=== PATIENT | male | born 1945 | race Caucasian/White ===

== ENCOUNTER → 2018-08-20 10:39 | Outpatient (CLI) | payer MEDICARE, SELFPAY ==
--- NOTE | 2018-08-20 | DI.MRI.S_ITS ---
PROCEDURE: MR LUMBAR SPINE WO CON INDICATIONS: Low back pain TECHNIQUE: Noncontrast sagittal T1 spin echo and T2 fast echo, sagittal STIR, axial T1 and T2 fast spin echo through the lumbar spine. In cases with scoliosis, additional coronal T2 fast spin echo may be performed. COMPARISON: [facility] [place], CR, XR LUMBAR SPINE WITH OLBIQUES PLUS FLEXION EXTENSION, 08/09/2018, 9:51 FINDINGS: Image quality: Excellent. Alignment and Curvature: There is normal bony alignment. Bone Marrow: Marrow is of normal overall signal. No acute vertebral body compression fractures. Spinal Cord: Conus medullaris terminates at L1 level. Visualized cord demonstrates normal signal and size. Paraspinous Soft Tissues: No paravertebral masses. L1-L2: Normal appearance. L2-L3: Normal appearance. L3-L4: Loss of disc signal. Mild, diffuse disc bulge. Mild bilateral facet hypertrophy. Mild ligamentum flavum per superior moderate narrowing of the central canal. Moderate bilateral neural foraminal narrowing. No neural impingement. L4-L5: Loss of disc signal. Mild, diffuse disc bulge. Mild bilateral facet hypertrophy. Mild ligamentum flavum hypertrophy. Moderate narrowing of the central canal. Moderate bilateral neural foraminal narrowing. No neural impingement. Focal high intensity zone is noted in the posterior annulus compatible with a fissure. L5-S1: Loss of disc signal. Minimal, diffuse disc bulge. Mild bilateral facet hypertrophy. No central stenosis. No neural foraminal narrowing. No neural impingement. IMPRESSION: 1. Multilevel degenerative disc disease. 2. Multilevel facet arthropathy. 3. Moderate L3-L4 and L4-L5 central canal narrowing. 4. Moderate bilateral L3-L4 and L4-L5 neural foraminal narrowing. 5. No neural impingement. 6. L4-L5 disc annulus fissure. Dictated by: Susanna Kim MD, PhD on 08/22/2018 at 12:35 Approved by: Susanna Kim MD, PhD on 08/22/2018 at 12:47
== END ==
PROVIDERS: PCP Internal Medicine; Visit Provider Physical Medicine & Rehabilitation
DX: M54.5 Low back pain (principal); M51.36 Other intervertebral disc degeneration, lumbar region; M51.37 Other intervertebral disc degeneration, lumbosacral region; M48.061 Spinal stenosis, lumbar region without neurogenic claudication; M48.07 Spinal stenosis, lumbosacral region; M47.816 Spondylosis without myelopathy or radiculopathy, lumbar region; M47.817 Spondylosis without myelopathy or radiculopathy, lumbosacral region
CPT/HCPCS: 72148

== ENCOUNTER 2018-10-04 08:55 | Day surgery (SDC) | payer MEDICARE, SELFPAY ==
[2018-10-04 10:31] VITALS: BMI 27.9
[2018-10-04 10:35] VITALS: BP 144/74; PULSE 63; RESP 16; TEMP 36.6; O2SAT 98
[2018-10-04] MEDS: CATARACT EYE COMPOUND (10 DROPS/SYRINGE) 3 DROPS EYE-OP (11:03)
[2018-10-04] MEDS: PROPARACAINE 0.5% OPHTH SOL 2 DROPS EYE-OP (11:04)
--- NOTE | 2018-10-04 11:28 | PM.PREOP ---
Pre-operative Note Interval Note History & Physical reviewed/Exam performed by Physician: No Changes to H&P: No
--- NOTE | 2018-10-04 11:28 | PM.OP.1 ---
Operative Date/Time/Diagnoses Pre-op diagnosis: Nuclear cataract right eye Procedure & Clinicians Procedure: Cataract Surgery Same procedure as scheduled: Yes Surgeon: Gabe Pickett Anesthesia Type: MAC +/- and Sedation Operative Notes Procedure in detail: Patient brought to the operating suite. Tetracaine drops placed in the right eye. Patient was prepped and draped in sterile manner. Wire lid speculum was placed in the eye. Betadine drops were placed on the eye. This was irrigated. Lidocaine jelly was placed on the eye. A paracentesis port was created with a side-port blade. 0.1 mL 1% preservative free lidocaine was injected into the anterior chamber. The anterior chamber was deepened with viscoelastic. 2.6 mm keratome was used to create a temporal clear corneal incision. Cystotome and Utrata forceps were used to create continuous tear capsulorrhexis. Balanced salt solution was used to hydro dissect the nucleus. The phacoemulsification handpiece was inserted and the nucleus was removed using the stop and chop technique. The irrigation aspiration handpiece was inserted and the remaining cortex was removed. Anterior chamber was deepened with viscoelastic. An Barton ZCB00 intraocular lens with a power of 21.0 was injected into the capsular bag. Irrigation aspiration handpiece was inserted and the remaining viscoelastic was removed. Incision was hydrated with balanced salt solution and found to be leak free with pressure with Weck-Kathy sponges. 0.1 mL Vigamox injected anterior chamber. 0.3 mL Kenalog 10 mg was injected subconjunctivally. Lid speculum was removed. The patient left the operating room in excellent condition. Complications: none Condition: stable Disposition: same day surgery
[2018-10-04] MEDS: MOXIFLOXACIN OPHTH DROPS 3 ML BOTTLE 2 DROPS INJ (11:47)
[2018-10-04] MEDS: PHENYLEPHRINE/LIDOCAINE VIAL (OR) 0.2 ML EYE-OP (11:47)
[2018-10-04] MEDS: CHONDROIDTIN/SOD HYALURONATE 1.05 ML SYRINGE INTRAOCULA (11:48)
[2018-10-04] MEDS: TRIAMCINOLONE 50 MG/5 ML VIAL INJ (11:48)
[2018-10-04] MEDS: LIDOCAINE JELLY 2% 5 ML 1 APPLIC TOP (11:48)
[2018-10-04] MEDS: TETRACAINE 0.5% OPHTH DROPS 4 ML 2 DROPS EYE-OP (11:48)
[2018-10-04] MEDS: BALANCED SALT IRRIG SOLN NO.2 500 ML, EPINEPHrine 1 MG IRR (11:49)
[2018-10-04 12:30] VITALS: BP 129/77; PULSE 61; RESP 16; TEMP 37.1; O2SAT 99
== END 2018-10-04 12:30 | disposition home or self-care (01) ==
LOC: OR 08:57
PROVIDERS: PCP Internal Medicine; Visit Provider Ophthalmology
PROC: (CPT 66984; principal; 2018-10-04 11:15)
DX: H25.11 Age-related nuclear cataract, right eye (principal); E11.9 Type 2 diabetes mellitus without complications; I10 Essential (primary) hypertension; Z79.84 Long term (current) use of oral hypoglycemic drugs
CPT/HCPCS: 66984; J0171; J2250; J3301

== ENCOUNTER 2018-10-11 08:55 | Day surgery (SDC) | payer MEDICARE, SELFPAY ==
[2018-10-11] MEDS: PROPARACAINE 0.5% OPHTH SOL 2 DROPS EYE-OP (09:26)
[2018-10-11 09:28] VITALS: BP 136/73; PULSE 70; RESP 15; TEMP 36.4; O2SAT 98; BMI 27.8
[2018-10-11] MEDS: CATARACT EYE COMPOUND (10 DROPS/SYRINGE) 3 DROPS EYE-OP (09:31)
--- NOTE | 2018-10-11 10:37 | PM.PREOP ---
Pre-operative Note Interval Note History & Physical reviewed/Exam performed by Physician: No Changes to H&P: No
--- NOTE | 2018-10-11 10:37 | PM.OP.1 ---
Operative Date/Time/Diagnoses Pre-op diagnosis: Nuclear Cataract Left eye Post-op diagnosis: same Procedure & Clinicians Surgeon: Gabe Pickett Anesthesia Type: MAC +/- and Sedation Operative Notes Procedure in detail: Patient brought to the operating suite. Tetracaine drops placed in the left eye. Patient was prepped and draped in sterile manner. Wire lid speculum was placed in the eye. Betadine drops were placed on the eye. This was irrigated. Lidocaine jelly was placed on the eye. A paracentesis port was created with a side-port blade. 0.1 mL 1% preservative free lidocaine was injected into the anterior chamber. The anterior chamber was deepened with viscoelastic. 2.6 mm keratome was used to create a temporal clear corneal incision. Cystotome and Utrata forceps were used to create continuous tear capsulorrhexis. Balanced salt solution was used to hydro dissect the nucleus. The phacoemulsification handpiece was inserted and the nucleus was removed using the stop and chop technique. The irrigation aspiration handpiece was inserted and the remaining cortex was removed. Anterior chamber was deepened with viscoelastic. An Barton ZCB00 intraocular lens with a power of 21.0 was injected into the capsular bag. Irrigation aspiration handpiece was inserted and the remaining viscoelastic was removed. Incision was hydrated with balanced salt solution and found to be leak free with pressure with Weck-Kathy sponges. 0.1 mL Vigamox injected anterior chamber. 0.3 mL Kenalog 10 mg was injected subconjunctivally. Lid speculum was removed. The patient left the operating room in excellent condition. Complications: none Condition: stable Disposition: same day surgery
--- NOTE | 2018-10-11 10:47 | SUR.OPER ---
Supine on eye stretcher, head on extension cradle secured with tape. Arms tucked at sides with blanket. Pillow under knees.
[2018-10-11] MEDS: MOXIFLOXACIN OPHTH DROPS 3 ML BOTTLE 2 DROPS INJ (10:50)
[2018-10-11] MEDS: PHENYLEPHRINE/LIDOCAINE VIAL (OR) 0.2 ML EYE-OP (10:50)
[2018-10-11] MEDS: TRIAMCINOLONE 50 MG/5 ML VIAL INJ (10:51)
[2018-10-11] MEDS: LIDOCAINE JELLY 2% 5 ML 1 APPLIC TOP (10:52)
[2018-10-11] MEDS: CHONDROIDTIN/SOD HYALURONATE 1.05 ML SYRINGE INTRAOCULA (10:52)
[2018-10-11] MEDS: TETRACAINE 0.5% OPHTH DROPS 15 ML 2 DROPS EYE-LEFT (10:52)
[2018-10-11] MEDS: BALANCED SALT IRRIG SOLN NO.2 500 ML, EPINEPHrine 1 MG IRR (10:53)
[2018-10-11 11:05] VITALS: BP 114/73; PULSE 64; RESP 14; TEMP 36.2; O2SAT 97
--- NOTE | 2018-10-11 11:14 | SUR.PHASEII ---
1102 late entry To OPD in WC, awake, oriented. Juice given.
--- NOTE | 2018-10-11 11:15 | SUR.PHASEII ---
1111 Stable, A&O, no questions from pt/spouse.
== END 2018-10-11 11:11 | disposition home or self-care (01) ==
LOC: OR 08:57
PROVIDERS: PCP Internal Medicine; Visit Provider Ophthalmology
PROC: (CPT 66984; principal; 2018-10-11 10:45)
DX: H25.12 Age-related nuclear cataract, left eye (principal); E11.9 Type 2 diabetes mellitus without complications; I10 Essential (primary) hypertension
CPT/HCPCS: 66984; J0171; J2250; J3010; J3301

== ENCOUNTER → 2019-11-28 09:05 | Outpatient (CLI) | payer MEDICARE, SELFPAY ==
--- NOTE | 2019-11-28 | DI.US.S_ITS ---
PROCEDURE: US CAROTID DOPPLER BI INDICATIONS: PARKINSON'S DISEASE TECHNIQUE: Color and pulse Doppler interrogation was performed of both carotid systems, with image documentation and velocity measurements. COMPARISON: None. FINDINGS: Stenosis calculations are based on SRU (Society of Radiologists in Ultrasound) criteria. The flow velocities and the arterial waveforms are normal within both carotid arterial systems. Atherosclerotic plaque is seen on both sides. The estimated degree of internal carotid artery stenosis is less than 50%. Antegrade flow is confirmed within both vertebral arteries. IMPRESSION: No hemodynamically significant stenosis is seen. Atherosclerotic plaque is noted bilaterally. Dictated by: Shorty Price M.D. on 11/28/2019 at 9:49 Approved by: Shorty Price M.D. on 11/28/2019 at 9:50
== END ==
PROVIDERS: PCP Internal Medicine; Referring Provider Psychiatry & Neurology Neurology; Visit Provider Psychiatry & Neurology Neurology
DX: G20 Parkinson's disease (principal); I65.23 Occlusion and stenosis of bilateral carotid arteries
CPT/HCPCS: 93880

== ENCOUNTER → 2019-11-30 07:43 | Outpatient (CLI) | payer MEDICARE, SELFPAY ==
--- NOTE | 2019-11-30 | DI.MRI.S_ITS ---
PROCEDURE: MR HEAD/BRAIN WO/W CON INDICATIONS: Parkinson's disease TECHNIQUE: Noncontrast axial T1 spin echo, axial T2 fast spin echo, sagittal and axial FLAIR, coronal T2 fast spin echo, axial gradient echo, axial diffusion and ADC through the brain. After the administration of contrast, axial and coronal 3D VIBE or T1 spin echo with fat saturation through the brain. COMPARISON: None. FINDINGS: Image quality: Excellent. CSF Spaces: Basal cisterns are patent. No extra-axial fluid collections. Ventricles are normal in size and shape. Brain: No midline shift. No intracranial bleeds or masses. There is mild, diffuse cerebral volume loss. There are mild periventricular and subcortical white matter chronic microvascular ischemic changes. No abnormal intracranial enhancement. The brainstem appears normal. Diffusion-weighted images demonstrate no acute ischemic insults. No chronic ischemic insults. Normal intravascular flow voids are present. Skull and face: Calvarial marrow is normal in signal. Orbits appear normal. Sinuses: Sinuses and mastoids appear clear. IMPRESSION: 1. No acute intracranial disease process. 2. No areas of acute or chronic infarction.. 3. No abnormal intracranial mass or mass effect. 4. No suspicious postcontrast enhancement. 5. Mild, diffuse cerebral volume loss. 6. Mild periventricular and subcortical white matter chronic microvascular ischemic change. Dictated by: Susanna Kim MD, PhD on 11/30/2019 at 10:26 Approved by: Susanna Kim MD, PhD on 11/30/2019 at 10:29
== END ==
PROVIDERS: PCP Internal Medicine; Referring Provider Internal Medicine; Visit Provider Psychiatry & Neurology Neurology
DX: G20 Parkinson's disease (principal)
CPT/HCPCS: 70553; A9579

== ENCOUNTER → 2019-12-15 13:30 | Outpatient (CLI) | payer MEDICARE, SELFPAY ==
[2019-12-17 13:15] LABS: COVID19 Sendout Not Detected
== END ==
PROVIDERS: PCP Internal Medicine; Visit Provider Physician Assistant
DX: Z01.812 Encounter for preprocedural laboratory examination (principal); Z11.59 Encounter for screening for other viral diseases
CPT/HCPCS: 87635

== ENCOUNTER → 2020-01-31 18:51 | Outpatient (ROUT) | payer MEDICARE, SELFPAY ==
[2020-01-31 18:58] LABS: Hematocrit 41.2 % (41-53); Hemoglobin 13.6 g/dL (13.5-17.5); Mean Corpuscular HGB Conc 33.1 % (30-36); Mean Corpuscular Hemoglobin 29.3 PG (26-34); Mean Corpuscular Volume 88.7 fL (80-100); Platelet Count 184 X10^3/uL (150-400); Red Blood Cell Count 4.65 X10^6/uL (4.5-5.9); Red Cell Distribution Width 14.3 % (11.6-14.8); White Blood Cell Count 6.9 X10^3/uL (4.5-11.0)
[2020-01-31 19:04] LABS: Aspartate Aminotransferase 25 IU/L (17-59); BUN Creatinine Ratio 24.3 (6-22); Blood Urea Nitrogen 18 mg/dL (9-20); Calcium 10.2 mg/dL (8.4-10.2); Carbon Dioxide 26 mmol/L (22-32); Chloride 106 mmol/L (98-107); Cholesterol 84 mg/dL (140-199); Estimated Glomerular Filt Rate > 60.0 mL/min (>60); Glucose 138 mg/dL (80-110); HDL Cholesterol 47 mg/dL (40-60); HEMOLYSIS < 15 (0-50); LDL Cholesterol Calculated 25 mg/dL (<100); Potassium 4.6 mmol/L (3.4-5.1); Sodium 138 mmol/L (137-145); Triglycerides 60 mg/dL (35-150)
[2020-01-31 19:15] LABS: Neutrophils Absolute Manual 3519 /uL (3000-5900); Total Cells Counted 100
[2020-01-31 19:18] LABS: Acanthocytes 1+; Anisocytosis 1+; Poikilocytosis 1+
== END ==
PROVIDERS: PCP Internal Medicine; Visit Provider Internal Medicine
DX: I10 Essential (primary) hypertension (principal); E78.2 Mixed hyperlipidemia; N40.1 Benign prostatic hyperplasia with lower urinary tract symptoms
CPT/HCPCS: 80048; 80061; 84153; 84450; 85025

== ENCOUNTER → 2020-03-12 13:39 | Outpatient (CLI) | payer MEDICARE, SELFPAY ==
[2020-03-12 14:44] LABS: COVID19 -Nasal RAPID Negative (Negative)
== END ==
PROVIDERS: PCP Internal Medicine; Visit Provider Specialist
DX: Z01.812 Encounter for preprocedural laboratory examination (principal); Z20.822 Contact with and (suspected) exposure to COVID-19
CPT/HCPCS: 87635; C9803

== ENCOUNTER 2020-03-14 08:54 | Day surgery (SDC) | payer MEDICARE, SELFPAY ==
[2020-03-14] VITALS (7 sets, daily range): BP systolic 133–212; BP diastolic 64–91; PULSE 50–66; RESP 11–15; TEMP 36.5–36.6; O2SAT 94–98; BMI 27.1
--- NOTE | 2020-03-14 | PATH_ITS ---
[facility] Accession Number: [id number] . 01 Material submitted: . PART A: gastrointestinal site - GASTRIC POLYP PART B: esophagus, E-G Junction - GE JUNCTION . 02 Diagnosis: A. Stomach, Polyp, Biopsy: Gastric hyperplastic polyp. No evidence of Helicobacter on H/E stain. Negative for intestinal metaplasia. Negative for dysplasia and malignancy. . B. Gastroesophageal Junction, Biopsy: Squamocolumnar junctional mucosa with no diagnostic abnormality. Negative for intestinal metaplasia. Negative for dysplasia and malignancy. MRV 03/19/2020 1254 Local . 02 Electronically signed: . Tamiko Salomon MD, Pathologist NPI- [id number] . 01 Gross description: . Part A: GASTRIC POLYP: Received in formalin are 3 fragment(s) of pedraza, soft tissue measuring 1.5 x 0.6 x 0.4 cm to 0.6 x 0.5 x 0.2 cm submitted entirely in 1 cassette(s) Part B: GE JUNCTION: Received in formalin are 3 fragment(s) of pedraza, soft tissue measuring 0.9 x 0.3 x 0.1 cm to 0.3 x 0.2 x 0.1 cm submitted entirely in 1 cassette(s) /QBJ 03/15/2020 0848 Local . 02 Pathologist provided ICD-10: R13.10 . 02 CPT . 077125, [id number] Performed at: 01 [facility] [address] [id number] MD Baljit Espinoza MD Phone: [phone] Performed at: 02 [facility] [address] [place], [place] [id number] MD Tamiko Salomon MD Phone: [phone]
[2020-03-14] MEDS: LACTATED RINGERS 1,000 ML 200 ML IV (09:35)
--- NOTE | 2020-03-14 09:58 | PM.HP.1 ---
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 Is been 3 years since his last exam. Here for an EGD and biopsies. Patient History Medical History (Updated 03/14/20 @ 10:01 by Cedric Martinez MD) Buchanan's esophagus Parkinson's disease Family & Social History Social History: household members spouse Tobacco & Substance use: Smoking Status Never smoker alcohol intake current alcohol intake frequency a few times a week Substance Use Type does not use Meds Home Medications and Allergies Home Medications Medication Instructions Recorded Confirmed Type amlodipine 5 mg PO DAILY 10/04/18 03/14/20 History losartan 100 mg PO DAILY 10/04/18 03/14/20 History metformin 1,000 mg PO BID 10/04/18 03/14/20 History omeprazole 20 mg PO DAILY 10/04/18 03/14/20 History carvedilol 25 mg tablet 25 mg PO BID 12/04/19 03/14/20 History rosuvastatin 20 mg tablet 5 mg PO ONCE HS tab 12/04/19 03/14/20 History carbidopa-levodopa 3 tab PO TID 03/14/20 03/14/20 History Allergies Allergy/AdvReac Type Severity Reaction Status Date / Time lisinopril [LISINOPRIL] Allergy Intermediate SWOLLEN Verified 03/14/20 09:09 TONGUE, HIVES Review of Systems Review of Systems ROS: Yes All systems reviewed with the patient and are negative except as otherwise documented Exam Narrative Exam Narrative: Pleasant cooperative patient no apparent distress. Lungs are clear to auscultation. No rales or rhonchi. Heart regular rate and rhythm no murmur gallop. Abdomen is soft nontender without mass. No obvious hernias. Patient is alert and oriented x3. Assessment & Plan Assessment and plan (1) Essential hypertension with goal blood pressure less than 130/85: Problem details: Took meds Status: Acute (2) Parkinson's disease: Problem details: Took his meds Status: Acute (3) Buchanan's esophagus: Problem details: EGD with biopsy. Risks of bleeding perforation discussed. Status: Acute
--- NOTE | 2020-03-14 10:19 | PM.PREOP ---
Pre-operative Note COVID-19 COVID-19 status: Negative Result date/Date tested (Pos, Neg/Pending): 03/13/20 Interval Note History & Physical reviewed/Exam performed by Physician: Yes Changes to H&P: No ASA Class (for procedural sedation): III
[2020-03-14] MEDS: LIDOCAINE 4% SOLN 50 ML 20 ML TOP (10:22)
[2020-03-14] MEDS: MIDAZOLAM 5 MG/5 ML VIAL IV (10:31)
[2020-03-14] MEDS: fentaNYL 250 MCG/5 ML INJ IV (10:32)
[2020-03-14] MEDS: EPINEPHrine 1 MG/10 ML SYRINGE IV (10:58)
--- NOTE | 2020-03-14 11:41 | PM.OP.ENDO ---
Operative Date/Time/Diagnoses Date of procedure: 03/14/20 Time of procedure: 11:14 Pre-op diagnosis: Buchanan's esophagus. Post-op diagnosis: same (Large pedunculated inflamed gastric polyp near the GE junction.) Procedure & Clinicians Study performed: EGD and snare of polyp. Injection of epinephrine solution application of clips to control bleeding. Cold Biopsy the GE junction. Same procedure as scheduled: Yes Indications: Surveillance of Buchanan's Surgeon: Cedric Martinez Procedure Notes SCOAP/Timeout: Performed Procedure in detail: The patient had topical anesthetic applied to oropharynx. She was placed in left lateral decubitus position and underwent IV sedation directed by the surgeon consisting of fentanyl and Versed. A bite block was inserted and the scope was advanced through it into the esophagus. The esophagus was unremarkable until we reach the distal esophagus where there was evidence of his Buchanan's esophagus.. GE junction was noted at 42 cm. The stomach insufflated well. There were no lesions seen in the body, antrum or at the incisura except for what appeared to be gastric fundic polyps.. The pyloric channel was narrowed but patent.. The duodenum was unremarkable to the 4th part. The scope was brought back into the stomach and retroflexed. The proximal stomach was remarkable for inflamed polyps near the GE junction 1 of which was elongated and pedunculated. The snare was placed across and unfortunately of the when the snare was slowly closed transected the base and there was bleeding. I cauterized this. It seemed to stop. I brought the scope up into the GE junction and did biopsies there. The scope was removed but unfortunately the container with the GE junction biopsies spilled and I could not retrieve these specimens. There were 2 small and pale to actually see on the material that they spilled on. Therefore the scope was reinserted and additional biopsies were taken at the GE junction. I re-examined the snared polyp site and decided to apply clips and inject epinephrine solution around it in order to be sure that it would not bleed.. The scope was straightened and brought out through the esophagus again. No other lesions were seen. The scope was removed and the patient tolerated the procedure well. Scope withdrawal time: Non applicable Sedation minutes: 31 Findings: Buchanan's esophagus and polyp (Gastric) Specimen(s): other (GE junction biopsies and gastric polyp.) Complications: none Post-procedure Recommendations: EGD in 3 years Follow up: as needed Disposition: PACU
--- NOTE | 2020-03-14 12:19 | SUR.PHASEII ---
1214-Pt dcd via [place] in stable condition to private vehickle at [facility] and . Pt verbalizes understanding of all dc instructions and is in good spirits
== END 2020-03-14 12:14 | disposition home or self-care (01) ==
PROVIDERS: PCP Internal Medicine; Referring Provider Internal Medicine; Visit Provider Specialist
PROC: 0DJ08ZZ Inspection of Upper Intestinal Tract, Via Natural or Artificial Opening Endoscopic (ICD-10-PCS; CPT 43235; principal; 2020-03-14 10:00)
DX: K22.70 Barrett's esophagus without dysplasia (principal); I10 Essential (primary) hypertension; G20 Parkinson's disease; K31.7 Polyp of stomach and duodenum
CPT/HCPCS: 43251; 99152; 99153; J0171; J2250; J3010

== ENCOUNTER → 2021-04-15 13:08 | Outpatient (CLI) | payer MEDICARE, SELFPAY | PROVIDERS: PCP Internal Medicine; Visit Provider Physician Assistant | DX: N39.0 Urinary tract infection, site not specified (principal) | CPT/HCPCS: 87077; 87086; 87186 ==

== ENCOUNTER → 2022-09-11 09:20 | Outpatient (CLI) | payer MEDICARE, SELFPAY ==
[2022-09-11 09:53] LABS: Hematocrit 37.2 % (41-53); Hemoglobin 12.5 g/dL (13.5-17.5); Mean Corpuscular HGB Conc 33.6 % (30-36); Mean Corpuscular Hemoglobin 29.9 PG (26-34); Mean Corpuscular Volume 89.1 fL (80-100); Platelet Count 195 X10^3/uL (150-400); Red Blood Cell Count 4.17 X10^6/uL (4.5-5.9); Red Cell Distribution Width 13.8 % (11.6-14.8); White Blood Cell Count 7.4 X10^3/uL (4.5-11.0)
[2022-09-11 11:35] LABS: Alanine Aminotransferase 7 IU/L (<50); Albumin 4.2 g/dL (3.5-5.0); Albumin Globulin Ratio 1.7 (1.0-2.8); Alkaline Phosphatase 82 U/L (38-126); Aspartate Aminotransferase 22 IU/L (17-59); BUN Creatinine Ratio 24.4 (6-22); Bilirubin Total 0.5 mg/dL (0.2-1.3); Blood Urea Nitrogen 32 mg/dL (9-20); Calcium 9.5 mg/dL (8.4-10.2); Carbon Dioxide 30 mmol/L (22-32); Chloride 104 mmol/L (98-107); Estimated Glomerular Filt Rate 56 mL/min (>60); Globulin 2.5 g/dL (1.7-4.1); Glucose 115 mg/dL (80-110); HEMOLYSIS < 15 (0-50); Potassium 4.9 mmol/L (3.4-5.1); Sodium 140 mmol/L (137-145); Total Protein 6.7 g/dL (6.3-8.2)
[2022-09-11 12:04] LABS: Prostate Specific Antigen 2.06 ng/mL (0.10-4.00); TSH w/ Reflex to FT4 2.16 uIU/mL (0.47-4.68)
[2022-09-12 08:39] LABS: Labcorp Hemoglobin (Hb) A1c 5.7 % (4.8-5.6)
== END ==
PROVIDERS: PCP Internal Medicine; Referring Provider Internal Medicine; Visit Provider Internal Medicine
DX: E11.59 Type 2 diabetes mellitus with other circulatory complications (principal); E78.2 Mixed hyperlipidemia; I10 Essential (primary) hypertension; I25.9 Chronic ischemic heart disease, unspecified
CPT/HCPCS: 36415; 80053; 83036; 84153; 84443; 85027

== ENCOUNTER → 2022-09-12 07:46 | Outpatient (CLI) | payer MEDICARE, SELFPAY ==
[2022-09-12 09:38] LABS: Creatinine Urine Random 62.5 mg/dL
[2022-09-12 09:43] LABS: Microalbumi Creatinin Ratio Ur 28.8 ug/mg CR (<30); Microalbumin Urine Random 1.8 mg/dL (0-1.6)
== END ==
PROVIDERS: PCP Internal Medicine; Referring Provider Internal Medicine; Visit Provider Internal Medicine
DX: E78.2 Mixed hyperlipidemia (principal); I10 Essential (primary) hypertension; E11.59 Type 2 diabetes mellitus with other circulatory complications; I25.9 Chronic ischemic heart disease, unspecified
CPT/HCPCS: 82043; 82570

== ENCOUNTER → 2023-04-08 10:28 | Outpatient (CLI) | payer MEDICARE, SELFPAY ==
[2023-04-08 12:19] LABS: Aspartate Aminotransferase 24 IU/L (17-59); BUN Creatinine Ratio 20.3 (6-22); Blood Urea Nitrogen 28 mg/dL (9-20); Calcium 9.8 mg/dL (8.4-10.2); Carbon Dioxide 25 mmol/L (22-32); Chloride 107 mmol/L (98-107); Cholesterol 84 mg/dL (140-199); Estimated Glomerular Filt Rate 53 mL/min (>60); Glucose 137 mg/dL (80-110); HDL Cholesterol 36 mg/dL (40-60); HEMOLYSIS < 15 (0-50); LDL Cholesterol Calculated 33 mg/dL (<100); Potassium 4.7 mmol/L (3.4-5.1); Sodium 141 mmol/L (137-145); Triglycerides 77 mg/dL (35-150)
[2023-04-08 12:41] LABS: Hemoglobin A1C% w Est Avg Glu 5.8 % (4.0-6.0)
== END ==
PROVIDERS: PCP Internal Medicine; Referring Provider Internal Medicine; Visit Provider Internal Medicine
DX: E78.2 Mixed hyperlipidemia (principal); E11.42 Type 2 diabetes mellitus with diabetic polyneuropathy
CPT/HCPCS: 36415; 80048; 80061; 83036; 84450

== ENCOUNTER → 2023-04-12 09:53 | Outpatient (CLI) | payer MEDICARE, SELFPAY ==
[2023-04-12 13:01] LABS: Appearance Urine UA SL CLOUDY; Bilirubin Urine UA NEGATIVE (NEGATIVE); Color Urine UA YELLOW; Glucose Urine UA NEGATIVE (Negative); Ketones Urine UA TRACE (NEGATIVE); Leukocyte Esterase Urine UA 2+ (NEGATIVE); Nitrite Urine UA NEGATIVE (Negative); Occult Blood Urine UA TRACE-INTACT (Negative); Protein Urine UA TRACE (Negative); Specific Gravity Urine UA 1.015 (1.000-1.035); Urobilinogen Urine UA 0.2 E.U./dL (0.2)
[2023-04-12 13:16] LABS: Urine Volume 10mL (spun)
[2023-04-12 13:17] LABS: Bacteria Urine Few (2-10); RBC Urine 1-5/HPF (0-5/HPF); Squamous Epithelial Cell Urine 1-5 /HPF (0-5/HPF); WBC Urine 10-30/HPF (0-5/HPF)
[2023-04-12 13:18] LABS: Culture Indicated Urine Specimen Cultured
== END ==
PROVIDERS: PCP Internal Medicine; Referring Provider Internal Medicine; Visit Provider Internal Medicine
DX: R82.90 Unspecified abnormal findings in urine (principal)
CPT/HCPCS: 81001; 87077; 87086; 87186

== ENCOUNTER 2023-06-14 13:06 | Emergency (ER) | payer MEDICARE, SELFPAY ==
[2023-06-14] VITALS (26 sets, daily range): BP systolic 92–133; BP diastolic 44–62; PULSE 80–109; RESP 24–42; TEMP 37.5–40.2; O2SAT 91–97; BMI 28.4
--- NOTE | 2023-06-14 13:24 | ED_ITS ---
HPI - Neuro Symptoms/Deficit General Chief Complaint: Fever Stated Complaint: sent by lab, per pt is unresponsive Time Seen by Provider: 06/14/23 13:24 Source: patient and family Mode of arrival: Wheelchair History of Present Illness HPI Narrative: 78-year-old male with history of Parkinson's, hypertension, diabetes type 2, dyslipidemia with complaint of back and abdominal pain starting 1 or 2 days ago. Patient yesterday threw up had a fever when EMS came to check him. He went today to drop off a urine sample and became unresponsive. Patient will answer his name he can sort of tell me where he is. He does not answer a lot questions otherwise but responds to verbal stimuli. states that he has known Parkinson's disease, she states he has been a little bit off the last day has been complaining of back pain for about 2 days and then abdominal pain starting yesterday and into today. She states she noticed his breathing was faster, no other cold cough or congestion symptoms. She states he was not altered until later today. Patient has had a fever reportedly of 101 F. He had nausea and vomiting yesterday. She states she has not had a bowel movement least a couple days but does have some chronic constipation. She states she has been urinating regularly. Patient has not had any reported surgeries. Allergic to NILE inhibitors. No tobacco, occasional alcohol, no recreational drugs. Dr. Niño is his primary care physician. On Anticoagulants: No Related Data Home Medications Medication Instructions Recorded Confirmed alpha lipoic acid 600 mg capsule 600 mg PO DAILY 09/09/22 06/14/23 ascorbic acid (vitamin C) 1,000 mg 1,000 mg PO DAILY 09/09/22 06/14/23 tablet carbidopa 25 mg-levodopa 100 mg 2 tab PO TID 09/09/22 06/14/23 tablet cholecalciferol (vitamin D3) 125 125 mcg PO DAILY 09/09/22 06/14/23 mcg (5,000 unit) capsule clotrimazole-betamethasone 1 1 applic topical BID PRN Rash 09/09/22 06/14/23 %-0.05 % topical cream coenzyme Q10 100 mg capsule (Co 100 mg PO DAILY 09/09/22 06/14/23 Q-10) iodine 200 mcg PO DAILY 09/09/22 06/14/23 magnesium glycinate 240 mg PO DAILY 09/09/22 06/14/23 mecobalamin (vitamin B12) 5,000 5,000 mcg PO DAILY 09/09/22 06/14/23 mcg disintegrating tablet milk thistle 525 mg PO DAILY 09/09/22 06/14/23 vitamin k 2 100 mcg PO DAILY 09/09/22 06/14/23 Previous Rx's Medication Instructions Recorded carvedilol 12.5 mg tablet 12.5 mg PO BID #180 tabs 04/12/23 metformin 500 mg tablet 500 mg PO BID #180 tabs 04/12/23 rosuvastatin 5 mg tablet 5 mg PO .Every 2 days #45 tabs 04/12/23 amlodipine 10 mg tablet 10 mg PO DAILY #90 tabs 04/13/23 losartan 50 mg tablet 50 mg PO BID #180 tabs 04/13/23 Allergies Allergy/AdvReac Type Severity Reaction Status Date / Time lisinopril [LISINOPRIL] Allergy Intermediate SWOLLEN Verified 04/19/23 10:21 TONGUE, HIVES Review of Systems Review of Systems ROS Unobtainable: All systems reviewed & are unremarkable except as noted in HPI and below (obtained from spouse) Hematologic/Lymphatic On Anticoagulants: No Patient History Medical History Slow transit constipation History of colonic polyps 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 Polyneuropathy, unspecified Mixed hyperlipidemia Essential hypertension History of diverticulitis History of melanoma History of aspiration pneumonia Seasonal allergic rhinitis GERD (gastroesophageal reflux disease) Snoring (~1999) Obstructive sleep apnea, adult Buchanan's esophagus Parkinson's disease Headache Social History household members: spouse Smoking Status: Never smoker alcohol intake: current Smoking Status: Never smoker alcohol intake frequency: a few times a week Substance Use Type: does not use Exam Narrative Exam Narrative: GEN: Male in moderate distress, alert and oriented space and location. Patient is diaphoretic. HEENT: Atraumatic, pupils are equal round reactive to light, extraocular movements are intact, nares are clear, there is no conjunctival pallor. Throat is clear without any exudates, erythema, tonsillar enlargement or uvular deviation HEART: Slightly tachycardic but Regular rate and rhythm without murmur, clicks, rubs. Pulses bilateral lower extremities are equal. LUNGS:Lungs clear to auscultation, no wheezes, rales, crackles, chest moves symmetrically, slight tachypnea. No accessory muscle use. ABD:bowel sounds normal, soft, patient is tender throughout but particularly left lower quadrant, no guarding, rebound, rigidity, no masses noted, no hepatosplenomegaly :No CVA tenderness bilaterally, Male: normal external examination, no penile discharge or lesions, testicles non-tender, cremasteric reflex intact, no inguinal hernias noted. MSCL: Non-tender, no muscle atrophy, muscles strength 5/5 upper and lower extremities, full range of motion NEURO:CN 2-12 intact, sensation normal Initial Vital Signs Initial Vital Signs: Vital Signs Temperature 99.5 F 06/14/23 13:14 Pulse Rate 109 H 06/14/23 13:14 Respiratory Rate 06/14/23 13:14 Blood Pressure 116/55 L 06/14/23 13:14 Pulse Oximetry 93 06/14/23 13:14 Oxygen Delivery Method Room Air 06/14/23 13:14 Course Orders Ordered: ED Orders 06/14/23 13:32 XR chest 1V Stat EKG-12 Lead Stat RT Consult Eval and Treat NOW 06/14/23 13:34 CT kidney ureter bladder (KUB) Stat 06/14/23 13:35 BNP [NT-proBNP (BNP-Adult 18+)] Stat Blood Culture Stat Complete Blood Count AUTO DIFF Stat Comprehensive Metabolic Panel Stat Lactate (Lactic Acid) Stat Lipase Stat PTT Partial Thromboplastin Richi Stat Procalcitonin Stat Prothrombin Time INR Stat Troponin & CK Cardiac Panel Stat 06/14/23 13:40 Urinalysis and Microscopic Stat Urine Culture Stat Discontinued Medications Acetaminophen (Acetaminophen 650 Mg Supp) 650 mg PA NOW ONE Stop: 06/14/23 13:54 Last Admin: 06/14/23 14:03 Dose: 650 mg Documented By: RL Acetaminophen (Acetaminophen 650 Mg Supp) 650 mg PA NOW ONE Stop: 06/14/23 18:06 Acetaminophen (Acetaminophen 325 Mg Tablet) 650 mg PO NOW ONE Stop: 06/14/23 18:06 Last Admin: 06/14/23 18:12 Dose: 650 mg Documented By: RL Carbidopa/Levodopa (Carbidopa-Levodopa 25/100 Tablet) 2 each PO NOW ONE Stop: 06/14/23 14:09 Last Admin: 06/14/23 14:24 Dose: 2 each Documented By: BARBARA Sodium Chloride (Normal Saline 0.9%) 1,000 mls @ 1,000 mls/hr IV BOLUS ONE Stop: 06/14/23 14:33 Last Infusion: 06/14/23 15:21 Dose: Infused Documented By: Admin: 06/14/23 14:03 Dose: 1,000 mls/hr Documented By: BARBARA Piperacillin Sod/Tazobactam (Sod 4.5 gm/ Sodium Chloride) 100 mls @ 200 mls/hr IV NOW ONE Stop: 06/14/23 14:09 Last Infusion: 06/14/23 14:58 Dose: Infused Documented By: Admin: 06/14/23 14:24 Dose: 200 mls/hr Documented By: BARBARA Sodium Chloride (Normal Saline 0.9%) 2,259 mls @ 753 mls/hr 30 ml/kg infuse over 3 hr (2259 ml) IV NOW ONE Stop: 06/14/23 18:21 Last Infusion: 06/14/23 17:28 Dose: Infused Documented By: Admin: 06/14/23 15:26 Dose: 753 mls/hr Documented By: BARBARA Levofloxacin (Levaquin) 750 mg in 150 mls @ 100 mls/hr IV NOW ONE Stop: 06/14/23 16:55 Last Infusion: 06/14/23 17:28 Dose: Infused Documented By: Admin: 06/14/23 15:50 Dose: 100 mls/hr Documented By: BARBARA Ondansetron HCl (Ondansetron 4 Mg/2 Ml Inj) 4 mg IV NOW PRN PRN Reason: Nausea And Vomiting Ondansetron HCl (Ondansetron 4 Mg Odt) 4 mg SL NOW PRN PRN Reason: Nausea And Vomiting Vital Signs Vital signs: Vital Signs - 8 hr 06/14/23 13:14 06/14/23 13:31 06/14/23 13:45 Temperature 99.5 F 103.3 F H Pulse Rate 109 H 101 H 96 H Respiratory Rate 24 42 H 36 H Blood Pressure 116/55 L Pulse Oximetry 93 91 92 Oxygen Delivery Method Room Air 06/14/23 13:45 06/14/23 14:00 06/14/23 14:00 Temperature 104.4 F H Pulse Rate 89 Respiratory Rate 32 H Blood Pressure 125/59 L 121/60 Pulse Oximetry 93 Oxygen Delivery Method 06/14/23 14:03 06/14/23 14:30 06/14/23 14:58 Temperature 104.4 F H 104.0 F H 103.1 F H Pulse Rate 86 81 Respiratory Rate 29 H 26 H Blood Pressure Pulse Oximetry 94 94 Oxygen Delivery Method 06/14/23 14:58 06/14/23 15:00 06/14/23 15:00 Temperature 102.9 F H Pulse Rate 80 Respiratory Rate 26 H Blood Pressure 117/59 L 111/57 L Pulse Oximetry 95 Oxygen Delivery Method 06/14/23 15:15 06/14/23 15:15 06/14/23 15:30 Temperature 102.6 F H Pulse Rate 81 Respiratory Rate 25 H Blood Pressure 118/57 L 108/56 L Pulse Oximetry 94 Oxygen Delivery Method 06/14/23 15:30 06/14/23 15:45 06/14/23 15:45 Temperature 102.2 F H 102.0 F H Pulse Rate 82 81 Respiratory Rate 24 25 H Blood Pressure 108/57 L Pulse Oximetry 95 95 Oxygen Delivery Method 06/14/23 16:00 06/14/23 16:00 06/14/23 16:15 Temperature 101.8 F H 101.7 F H Pulse Rate 83 84 Respiratory Rate 25 H 25 H Blood Pressure 102/54 L Pulse Oximetry 95 95 Oxygen Delivery Method 06/14/23 16:15 06/14/23 16:30 06/14/23 16:30 Temperature 101.5 F H Pulse Rate 84 Respiratory Rate 25 H Blood Pressure 125/61 108/56 L Pulse Oximetry 97 Oxygen Delivery Method 06/14/23 16:45 06/14/23 16:45 06/14/23 17:00 Temperature 101.3 F H 101.3 F H Pulse Rate 83 90 Respiratory Rate 25 H 29 H Blood Pressure 105/57 L Pulse Oximetry 94 94 Oxygen Delivery Method 06/14/23 17:01 06/14/23 17:01 06/14/23 17:16 Temperature 101.3 F H 101.3 F H Pulse Rate 91 H 88 Respiratory Rate 28 H 29 H Blood Pressure 133/59 L Pulse Oximetry 95 93 Oxygen Delivery Method 06/14/23 17:16 06/14/23 17:30 06/14/23 17:31 Temperature 101.3 F H 101.3 F H Pulse Rate 92 H 91 H Respiratory Rate 24 27 H Blood Pressure 105/44 L Pulse Oximetry 94 94 Oxygen Delivery Method 06/14/23 17:31 06/14/23 17:45 06/14/23 17:45 Temperature 101.1 F H Pulse Rate 90 Respiratory Rate 31 H Blood Pressure 122/60 92/49 L Pulse Oximetry 93 Oxygen Delivery Method 06/14/23 17:52 06/14/23 17:52 06/14/23 18:00 Temperature 101.3 F H 101.3 F H Pulse Rate 90 87 Respiratory Rate 26 H Blood Pressure 128/62 Pulse Oximetry 93 93 Oxygen Delivery Method 06/14/23 18:00 06/14/23 18:12 06/14/23 18:15 Temperature 101.1 F H 101.1 F H Pulse Rate 87 Respiratory Rate 25 H Blood Pressure 128/59 L Pulse Oximetry 94 Oxygen Delivery Method 06/14/23 18:15 06/14/23 18:30 Temperature 101.1 F H Pulse Rate Respiratory Rate Blood Pressure 108/60 Pulse Oximetry Oxygen Delivery Method MDM - Neuro Symptoms/Deficit Lab Data 06/14/23 13:35 06/14/23 13:35 Labs: Lab Results 06/14/23 06/14/23 06/14/23 Range/Units 13:35 13:40 15:25 WBC 2.8 L (4.5-11.0) X10^3/uL RBC 3.81 L (4.5-5.9) X10^6/uL Hgb 11.4 L (13.5-17.5) g/dL Hct 33.8 L (41-53) % MCV 88.9 (80-100) fL MCH 30.0 (26-34) PG MCHC 33.8 (30-36) % RDW 14.3 (11.6-14.8) % Plt Count 191 (150-400) X10^3/uL Neut % (Auto) 73.4 (50-75) % Lymph % (Auto) 24.7 L (25-40) % [place] % (Auto) 1.3 L (3-14) % Eos % (Auto) 0.1 L (2-4) % Baso % (Auto) 0.5 (0-2) % Neut # (Auto) 2000 (3649-6273) /uL Lymph # (Auto) 700 L (9058-4457) /uL [place] # (Auto) 0 (0-900) /uL Eos # (Auto) 0 (0-450) /uL Baso # (Auto) 0 (0-100) /uL PT 16.2 H (9.4-12.5) SECONDS INR 1.4 H (0.9-1.3) APTT 33 (25.1-36.5) SECONDS Sodium 136 L (137-145) mmol/L Potassium 5.1 (3.4-5.1) mmol/L Chloride 107 (98-107) mmol/L Carbon Dioxide 19 L (22-32) mmol/L BUN 38 H (9-20) mg/dL Creatinine 2.46 H (0.66-1.25) mg/dL Estimated GFR 26 L (>60) mL/min BUN/Creatinine Ratio 15.4 (6-22) Glucose 169 H (80-110) mg/dL Lactate 3.6 H 1.7 (0.7-2.1) mmol/L Calcium 9.2 (8.4-10.2) mg/dL Total Bilirubin 0.7 (0.2-1.3) mg/dL AST 43 (17-59) IU/L ALT 14 (<50) IU/L Alkaline Phosphatase 88 (38-126) U/L Total Creatine Kinase 103 (55-170) U/L Troponin I 0.034 (0.01-0.034) ng/mL NT-Pro-B Natriuret Pep 3550 H (<450) pg/mL Total Protein 6.4 (6.3-8.2) g/dL Albumin 3.5 (3.5-5.0) g/dL Globulin 2.9 (1.7-4.1) g/dL Albumin/Globulin Ratio 1.2 (1.0-2.8) Lipase 65 (23-300) U/L Procalcitonin 48.4 H (<0.5) ng/mL Urine Color Yellow Urine Appearance Cloudy Urine pH 5.0 (4.5-8.0) Ur Specific [place] 1.020 (1.000-1.035) Urine Protein 2+ H (Negative) Urine Glucose (UA) Negative (Negative) g/dL Urine Ketones Trace H (NEGATIVE) Urine Occult Blood 2+ H (Negative) Urine Nitrate Positive H (Negative) Urine Bilirubin Negative (NEGATIVE) Urine Urobilinogen 0.2 (0.2) E.U./dL Ur Leukocyte Esterase 2+ H (NEGATIVE) Urine RBC 1-5/hpf (0-5/HPF) Urine WBC 10-30/hpf H (0-5/HPF) Ur Squamous Epith Cells 1-5 /hpf (0-5/HPF) Urine Bacteria Many (>30) H (None) Ur Culture Indicated? Specimen cultured Vol Urine Centrifuged 10ml (spun) Imaging Data Chest x-ray: Radiologist's Impression: Catracho Stanford??78??M??1945 ? Allergy/Adv: lisinopril Close Abdomen/Pelvis CT (Signed) Jane Colmenares - 06/14/23 Chest X-Ray (Signed) Jane Colmenares - 06/14/23 Telemetry Strips 03/14/20 Brain MRI (Signed) Susanna Kim - 11/30/19 Carotid Doppler Study (Signed) Shorty Price - 11/28/19 Lumbar Spine MRI (Signed) Susanna Kim - 08/20/18 Launch?[place] [address] XRay Report Signed Patient: Catracho Stanford MR#: [id number] : 1945 Acct:[id number] Age/Sex: 78 / M Date of Service: 06/14/23 Loc: ED Accession Number: [id number] Procedure: XR chest 1V Ordering Provider: Adela Zapata D.O. PROCEDURE: XR CHEST 1V INDICATIONS: suspected sepsis TECHNIQUE: One view of the chest was acquired. COMPARISON: [facility], , CHEST 1 VIEW, 12/31/2016, 17:14. FINDINGS: Surgical changes and devices: None. Lungs and pleura: Lungs are clear. No pleural effusions or pneumothorax. Mediastinum: Mediastinal contours appear normal. Heart size is normal. Bones and chest wall: No suspicious bony lesions. Overlying soft tissues appear unremarkable. IMPRESSION: No acute pulmonary process. Dictated by: Jane Colmenares M.D. on 06/14/2023 at 14:22 Approved by: Jane Colmenares M.D. on 06/14/2023 at 14:23 CT scan - abdomen/pelvis: Radiologist's Impression: [address] [address] [address] Scan Report Signed Patient: Catracho Stanford MR#: [id number] : 1945 Acct:[id number] Age/Sex: 78 / M Date of Service: 06/14/23 Loc: ED Accession Number: [id number] Procedure: CT kidney ureter bladder (KUB) Ordering Provider: Adela Zapata D.O. PROCEDURE: CT KIDNEY URETER BLADDER (KUB) INDICATIONS: fever, abd pain, vomited, no BM recent TECHNIQUE: Axial sections were acquired from the lung bases to the pubic symphysis. Coronal and sagittal reformats were performed. For radiation dose reduction, the following was used: automated exposure control, adjustment of mA and/or kV according to patient size. COMPARISON: None. FINDINGS: Image quality: Diagnostic. Lower Chest: Small patchy opacity is present within the left base. Trace pericardial effusion. URINARY: Right Kidney: No stones or hydronephrosis. Renal atrophy. 6 mm hyperdensity is present within the inferior pole. Right Ureter: No hydroureter. Left Kidney: Prominent perinephric stranding with mild hydronephrosis. Left Ureter: Periureteral stranding is present. There is a 4 mm proximal ureteral calcification Hounsfield units 746. Mild proximal hydroureter. Bladder: Bladder is collapsed with a Smith catheter.. ABDOMEN: Liver: No contour-deforming solid mass. Gallbladder: No radiopaque gallstones or wall thickening. Biliary ducts: No biliary dilation. Pancreas: No ductal dilation. Spleen: Size is within normal limits. Adrenal Glands: No adrenal nodules. Stomach and Bowel: Normal colonic caliber, without significant wall thickening. Prominent colonic stool. Peritoneum: No abnormal intraperitoneal fluid. No free air. Ventral Wall: No hernia. Abdominal Nodes: No enlarged retroperitoneal or mesenteric lymph nodes. Vessels: Aorta and inferior vena cava are normal in size. PELVIS: Pelvic Organs: Unremarkable. Pelvic Nodes: Unremarkable. Miscellaneous: Small fat containing bilateral inguinal hernias are seen. Bones: Unremarkable. IMPRESSION: 4 mm proximal left ureteral calculus with mild hydronephrosis and proximal hydroureter. Dictated by: Jane Colmenares M.D. on 06/14/2023 at 15:00 Approved by: Jane Colmenares M.D. on 06/14/2023 at 15:02 [facility] Narrative Medical decision making narrative: 78-year-old male with reported fever in the last 24 hours, increasing illness with abdominal pain vomiting no bowel movement patient is tachycardic not hypotensive but is quite tender on exam. Suspect patient has a intra-abdominal process causing potential sepsis. Patient is tachycardic, febrile, has not been hypotensive initially but did become during stay. CBC shows a white count of 2.8, hemoglobin 11.4 which is fairly consistent with priors 12, platelets are 191. INR is 1.4, creatinine 2.46 was 1.38 and April 2023 BUN 38 sodium of 136 potassium of 5 1, chloride of 107 CO2 of 19 lactate 3.6 troponin is negative range BNP is 35 50. LFTs are negative. Procalcitonin is 48.4 Urine is positive for nitrates, 2+ blood, 2+ leuks, 10-30 white cells many bacteria. Chest x-ray shows no acute process CT KUB shows 4 mm stone with [id number] hydro on the left that is proximal with periureteral stranding present. Workup shows UTI with 4 mm obstructive stone on the left proximal ureteral calculus consistent with left-sided pain. Patient appears to have septic obstructive kidney stone with UTI sepsis. There is on-call Urology but no in- house Urology will attempt for transfer. Patient received a L bolus was given additional fluids for 30 cc/kilos bolus as he has had minimal output in the 1st hour. Does have a Smith catheter in place for strict I&Os. Patient received Zosyn initially we will also cover with Levaquin as there has been some resistant. Spoke with Jamila Laboy accepts as hospitalist at [facility]: Plan for med surge patient did have low blood pressure last was at 100 systolic at 4:00 p.m. 5:00 p.m. currently is currently 120 fives. Reviewed all labs, patient does not appear to be significantly fluid overloaded currently but has been given quite a bit of fluids. They state they do have beds we will aside bed upon arrival EMS to present to the emergency department. Dr. Chand, urology will see patient plan for NPO for stent placement for intervention this evening. Critical Care Time Critical Care Time Critical Care Time: Yes Total Critical Care Time: 40 Attestation: The high probability of a clinically significant, sudden or life threatening deterioration of the [cardiac] system(s) required my full and direct attention, intervention and personal management. The aggregate critical care time was [] minutes. This time is in addition to time spent performing reported procedures but includes the following: [x] Data Review and interpretation [x] Patient assessment and monitoring of vital signs [x] Documentation [x] Medication orders and management Discharge Plan Departure Patient Disposition: [facility] Clinical Impression: Sepsis, Kidney stone on left side, KAREEM (acute kidney injury), Acute UTI Prescriptions: No Action rosuvastatin 5 mg tablet 5 mg PO .Every 2 days Qty: 45 3RF metformin 500 mg tablet 500 mg PO BID Qty: 180 2RF carvedilol 12.5 mg tablet 12.5 mg PO BID Qty: 180 2RF Rx Instructions: must administer with a meal/food losartan 50 mg tablet 50 mg PO BID Qty: 180 3RF amlodipine 10 mg tablet 10 mg PO DAILY Qty: 90 3RF clotrimazole-betamethasone 1-0.05 % cream 1 applic topical BID PRN (Reason: Rash) alpha lipoic acid 600 mg capsule 600 mg PO DAILY mecobalamin (vitamin B12) 5,000 mcg tablet,disintegrating 5,000 mcg PO DAILY ascorbic acid (vitamin C) 1,000 mg tablet 1,000 mg PO DAILY coenzyme Q10 [Co Q-10] 100 mg capsule 100 mg PO DAILY cholecalciferol (vitamin D3) 125 mcg (5,000 unit) capsule 125 mcg PO DAILY iodine 200 mcg PO DAILY magnesium glycinate 240 mg PO DAILY milk thistle 525 mg PO DAILY vitamin k 2 100 mcg 100 mcg PO DAILY carbidopa-levodopa 25-100 mg tablet 2 tab PO TID Referrals: Tai Niño MD [Primary Care Provider] -
--- NOTE | 2023-06-14 13:32 | DI.RAD.S_ITS ---
PROCEDURE: XR CHEST 1V INDICATIONS: suspected sepsis TECHNIQUE: One view of the chest was acquired. COMPARISON: [facility], , CHEST 1 VIEW, 12/31/2016, 17:14. FINDINGS: Surgical changes and devices: None. Lungs and pleura: Lungs are clear. No pleural effusions or pneumothorax. Mediastinum: Mediastinal contours appear normal. Heart size is normal. Bones and chest wall: No suspicious bony lesions. Overlying soft tissues appear unremarkable. IMPRESSION: No acute pulmonary process. Dictated by: Jane Colmenares M.D. on 06/14/2023 at 14:22 Approved by: Jane Colmenares M.D. on 06/14/2023 at 14:23
--- NOTE | 2023-06-14 13:34 | DI.CT.S_ITS ---
PROCEDURE: CT KIDNEY URETER BLADDER (KUB) INDICATIONS: fever, abd pain, vomited, no BM recent TECHNIQUE: Axial sections were acquired from the lung bases to the pubic symphysis. Coronal and sagittal reformats were performed. For radiation dose reduction, the following was used: automated exposure control, adjustment of mA and/or kV according to patient size. COMPARISON: None. FINDINGS: Image quality: Diagnostic. Lower Chest: Small patchy opacity is present within the left base. Trace pericardial effusion. URINARY: Right Kidney: No stones or hydronephrosis. Renal atrophy. 6 mm hyperdensity is present within the inferior pole. Right Ureter: No hydroureter. Left Kidney: Prominent perinephric stranding with mild hydronephrosis. Left Ureter: Periureteral stranding is present. There is a 4 mm proximal ureteral calcification Hounsfield units 746. Mild proximal hydroureter. Bladder: Bladder is collapsed with a Smith catheter.. ABDOMEN: Liver: No contour-deforming solid mass. Gallbladder: No radiopaque gallstones or wall thickening. Biliary ducts: No biliary dilation. Pancreas: No ductal dilation. Spleen: Size is within normal limits. Adrenal Glands: No adrenal nodules. Stomach and Bowel: Normal colonic caliber, without significant wall thickening. Prominent colonic stool. Peritoneum: No abnormal intraperitoneal fluid. No free air. Ventral Wall: No hernia. Abdominal Nodes: No enlarged retroperitoneal or mesenteric lymph nodes. Vessels: Aorta and inferior vena cava are normal in size. PELVIS: Pelvic Organs: Unremarkable. Pelvic Nodes: Unremarkable. Miscellaneous: Small fat containing bilateral inguinal hernias are seen. Bones: Unremarkable. IMPRESSION: 4 mm proximal left ureteral calculus with mild hydronephrosis and proximal hydroureter. Dictated by: Jane Colmenares M.D. on 06/14/2023 at 15:00 Approved by: Jane Colmenares M.D. on 06/14/2023 at 15:02
[2023-06-14 13:46] LABS: Add Manual Diff / Slide Review NO; Basophils Absolute Auto 0 /uL (0-100); Basophils Percent Auto 0.5 % (0-2); Eosinophils Absolute Auto 0 /uL (0-450); Eosinophils Percent Auto 0.1 % (2-4); Hematocrit 33.8 % (41-53); Hemoglobin 11.4 g/dL (13.5-17.5); Lymphocytes Absolute Auto 700 /uL (1100-4500); Lymphocytes Percent Auto 24.7 % (25-40); Mean Corpuscular HGB Conc 33.8 % (30-36); Mean Corpuscular Volume 88.9 fL (80-100); Monocytes Absolute Auto 0 /uL (0-900); Monocytes Percent Auto 1.3 % (3-14); Neutrophils Absolute Auto 2000 /uL (1500-7000); Neutrophils Percent Auto 73.4 % (50-75); Platelet Count 191 X10^3/uL (150-400); Red Blood Cell Count 3.81 X10^6/uL (4.5-5.9); Red Cell Distribution Width 14.3 % (11.6-14.8); White Blood Cell Count 2.8 X10^3/uL (4.5-11.0)
[2023-06-14 13:53] LABS: INR 1.4 (0.9-1.3); Prothrombin Time 16.2 SECONDS (9.4-12.5)
[2023-06-14 13:56] LABS: PTT Partial Thromboplastin Tim 33 SECONDS (25.1-36.5)
[2023-06-14 13:57] LABS: Creatine Kinase 103 U/L (55-170)
[2023-06-14 13:58] LABS: Alanine Aminotransferase 14 IU/L (<50); Albumin 3.5 g/dL (3.5-5.0); Albumin Globulin Ratio 1.2 (1.0-2.8); Alkaline Phosphatase 88 U/L (38-126); Aspartate Aminotransferase 43 IU/L (17-59); BUN Creatinine Ratio 15.4 (6-22); Bilirubin Total 0.7 mg/dL (0.2-1.3); Blood Urea Nitrogen 38 mg/dL (9-20); Calcium 9.2 mg/dL (8.4-10.2); Carbon Dioxide 19 mmol/L (22-32); Chloride 107 mmol/L (98-107); Estimated Glomerular Filt Rate 26 mL/min (>60); Globulin 2.9 g/dL (1.7-4.1); Glucose 169 mg/dL (80-110); HEMOLYSIS < 15 (0-50); Lipase 65 U/L (23-300); Potassium 5.1 mmol/L (3.4-5.1); Sodium 136 mmol/L (137-145); Total Protein 6.4 g/dL (6.3-8.2)
[2023-06-14 13:59] LABS: Lactate (Lactic Acid) 3.6 mmol/L (0.7-2.1)
[2023-06-14 14:01] LABS: Appearance Urine UA CLOUDY; Bilirubin Urine UA NEGATIVE (NEGATIVE); Color Urine UA YELLOW; Glucose Urine UA NEGATIVE (Negative); Ketones Urine UA TRACE (NEGATIVE); Leukocyte Esterase Urine UA 2+ (NEGATIVE); Nitrite Urine UA POSITIVE (Negative); Occult Blood Urine UA 2+ (Negative); Protein Urine UA 2+ (Negative); Urobilinogen Urine UA 0.2 E.U./dL (0.2)
[2023-06-14] MEDS: ACETAMINOPHEN 650 MG SUPP PR (14:03)
[2023-06-14] MEDS: SODIUM CHLORIDE 0.9% 1,000 ML 1000 ML IV (14:03)
[2023-06-14 14:06] LABS: Urine Volume 10mL (spun)
[2023-06-14 14:07] LABS: Bacteria Urine Many (>30); Culture Indicated Urine Specimen Cultured; RBC Urine 1-5/HPF (0-5/HPF); Squamous Epithelial Cell Urine 1-5 /HPF (0-5/HPF); WBC Urine 10-30/HPF (0-5/HPF)
[2023-06-14 14:10] LABS: NT-proBNP (BNP-Adult 18+) 3550 pg/mL (<450); Troponin I 0.034 ng/mL (0.01-0.034)
[2023-06-14 14:15] LABS: Procalcitonin 48.4 ng/mL (<0.5)
--- NOTE | 2023-06-14 14:16 | PC.NURSE ---
reports that patient was diagnosed with UTI in April and treated. Was coming to hospital today for repeat urinalysis but at lab was unresponsive and not following commands. Patient c/o back pain 2 days ago and yesterday was in normal state of health (mowed lawn) until early afternoon when he c/o being cold and had chills. Today woke up and said it was a struggle to get him into the car to come to hospital and when getting out of the car she noticed he had zipped his jacket over seat belt and couldn't follow the directions to undo it. At initially assessment patient had difficulty following commands and was answering in single words. Was diaphoretic and restless with tachypnea in the 40 respirations. Around time of rectal tylenol administration patient's mentation cleared and was able to follow commands to complete bedside swallow eval. Patient also was able to help with medication reconciliation. Patient continues to be diaphoretic but respirations have improved and no longer appear shallow and labored but are around 28 respirations per minute.
[2023-06-14] MEDS: PIPERACILLIN/TAZO 4.5 GM in SODIUM CHLORIDE 0.9% 100 ML IV (14:24)
[2023-06-14] MEDS: CARBIDOPA-LEVODOPA 25/100 TABLET 2 EACH PO (14:24)
[2023-06-14 15:16] LABS: Reflexed Lactate in 2 Hours Y
--- NOTE | 2023-06-14 15:21 | PC.NURSE ---
Urine output 23ml in last hour, provider notified, new orders placed.
[2023-06-14] MEDS: SODIUM CHLORIDE 0.9% 2,259 ML 753 ML IV (15:26)
[2023-06-14] MEDS: levoFLOXacin 750 MG/150 ML PIGGYBACK 100 MG IV (15:50)
[2023-06-14 15:59] LABS: Lactate 2HR (Lactic Acid Rflx) 1.7 mmol/L (0.7-2.1)
[2023-06-14] MEDS: ACETAMINOPHEN 325 MG TABLET 650 MG PO (18:12)
[2023-06-15 01:37] LABS: Acinetobacter calcoa-baumannii Not Detected (Not Detect); Bacteroides fragilis Not Detected (Not Detect); CTX-M Resistance Not Detected (Not Detect); Candida albicans Not Detected (Not Detect); Candida auris Not Detected (Not Detect); Candida glabrata Not Detected (Not Detect); Candida krusei Not Detected (Not Detect); Candida parapsilosis Not Detected (Not Detect); Candida tropicalis Not Detected (Not Detect); Cryptococcus neoformans/gatti Not Detected (Not Detect); Enterobacter cloacae complex Not Detected (Not Detect); Enterobacterales Detected (Not Detect); Enterococcus faecalis Not Detected (Not Detect); Enterococcus faecium Not Detected (Not Detect); Haemophilus influenzae Not Detected (Not Detect); IMP Resistance Not Detected (Not Detect); KPC Resistance Not Detected (Not Detect); Klebsiella aerogenes Not Detected (Not Detect); Listeria monocytogenes Not Detected (Not Detect); NDM Resistance Not Detected (Not Detect); Neisseria meningitidis Not Detected (Not Detect); OXA-48-like Resistance Not Detected (Not Detect); Proteus species Not Detected (Not Detect); Pseudomonas aeruginosa Not Detected (Not Detect); Salmonella species Not Detected (Not Detect); Serratia marcescens Not Detected (Not Detect); Staphylococcus epidermidis Not Detected (Not Detect); Staphylococcus lugdunensis Not Detected (Not Detect); Staphylococcus species Not Detected (Not Detect); Stenotrophomonas maltophilia Not Detected (Not Detect); Streptococcus agalactiae (Gr B Not Detected (Not Detect); Streptococcus pneumonia Not Detected (Not Detect); Streptococcus pyogenes (Gr A) Not Detected (Not Detect); Streptococcus species Not Detected (Not Detect); VIM Resistance Not Detected (Not Detect); mcr-1 Resistance Not Detected (Not Detect)
== END 2023-06-14 18:43 | disposition short-term general hospital (02) ==
PROVIDERS: Emergency Provider Emergency Medicine; PCP Internal Medicine
DX: A41.9 Sepsis, unspecified organism (principal); N20.0 Calculus of kidney; N17.9 Acute kidney failure, unspecified; N39.0 Urinary tract infection, site not specified; R00.0 Tachycardia, unspecified; G20.A1 Parkinson's disease without dyskinesia, without mention of fluctuations
CPT/HCPCS: 36415; 71045; 74176; 80053; 81001; 82550; 83605; 83690; 83880; 84145; 84484; 85025; 85610; 85730; 87040; 87077; 87086; 87154; 87186; 93005; 93010; 96365; 96366; 96367; 99285; 99291; J1956; J2543

== ENCOUNTER → 2023-06-30 07:36 | Outpatient (CLI) | payer MEDICARE, SELFPAY ==
[2023-06-30 08:30] LABS: Add Manual Diff / Slide Review NO; Basophils Absolute Auto 200 /uL (0-100); Basophils Percent Auto 1.8 % (0-2); Eosinophils Absolute Auto 200 /uL (0-450); Eosinophils Percent Auto 2.4 % (2-4); Hematocrit 30.7 % (41-53); Hemoglobin 10.3 g/dL (13.5-17.5); Lymphocytes Absolute Auto 2100 /uL (1100-4500); Lymphocytes Percent Auto 22.9 % (25-40); Mean Corpuscular HGB Conc 33.5 % (30-36); Mean Corpuscular Hemoglobin 29.7 PG (26-34); Mean Corpuscular Volume 88.7 fL (80-100); Monocytes Absolute Auto 1100 /uL (0-900); Monocytes Percent Auto 12.1 % (3-14); Neutrophils Absolute Auto 5500 /uL (1500-7000); Neutrophils Percent Auto 60.8 % (50-75); Platelet Count 362 X10^3/uL (150-400); Red Blood Cell Count 3.47 X10^6/uL (4.5-5.9)
[2023-06-30 08:51] LABS: BUN Creatinine Ratio 14.3 (6-22); Blood Urea Nitrogen 25 mg/dL (9-20); Calcium 9.4 mg/dL (8.4-10.2); Carbon Dioxide 23 mmol/L (22-32); Chloride 111 mmol/L (98-107); Estimated Glomerular Filt Rate 39 mL/min (>60); Glucose 137 mg/dL (80-110); HEMOLYSIS < 15 (0-50); Potassium 4.4 mmol/L (3.4-5.1); Sodium 139 mmol/L (137-145)
== END ==
LOC: LAB 07:38
PROVIDERS: PCP Internal Medicine; Referring Provider Internal Medicine Infectious Disease; Visit Provider Internal Medicine Infectious Disease
DX: R78.81 Bacteremia (principal)
CPT/HCPCS: 36415; 80048; 85025

== ENCOUNTER → 2023-07-15 11:15 | Outpatient (CLI) | payer MEDICARE, SELFPAY ==
--- NOTE | 2023-07-15 11:17 | DI.RAD.S_ITS ---
PROCEDURE: XR CERVICAL SPINE 4V OR 5V INDICATIONS: fall, neck pain TECHNIQUE: 5 views of the cervical spine acquired. COMPARISON: None. FINDINGS: Bones: No fractures or dislocations to the T1 level. With small osteophytes at C5-C6. Oblique images demonstrate no significant bony foraminal stenoses. Soft tissues: No prevertebral soft tissue swelling. IMPRESSION: [id number] degenerative changes at C5-C6. Dictated by: Kvein Rod M.D. on 07/15/2023 at 12:51 Approved by: Kevin Rod M.D. on 07/15/2023 at 12:53
[2023-07-15 11:46] LABS: Hematocrit 31.8 % (41-53); Hemoglobin 10.5 g/dL (13.5-17.5); Mean Corpuscular Hemoglobin 29.1 PG (26-34); Platelet Count 213 X10^3/uL (150-400); Red Blood Cell Count 3.61 X10^6/uL (4.5-5.9); Red Cell Distribution Width 14.5 % (11.6-14.8)
[2023-07-15 11:53] LABS: Hemoglobin A1C% w Est Avg Glu 6.3 % (4.0-6.0)
[2023-07-15 12:13] LABS: BUN Creatinine Ratio 18.4 (6-22); Blood Urea Nitrogen 29 mg/dL (9-20); Calcium 9.4 mg/dL (8.4-10.2); Carbon Dioxide 25 mmol/L (22-32); Chloride 109 mmol/L (98-107); Estimated Glomerular Filt Rate 44 mL/min (>60); Glucose 153 mg/dL (80-110); HEMOLYSIS < 15 (0-50); Potassium 4.6 mmol/L (3.4-5.1); Sodium 140 mmol/L (137-145)
== END ==
LOC: LAB 11:17
PROVIDERS: PCP Internal Medicine; Referring Provider Internal Medicine; Visit Provider Internal Medicine
DX: M54.2 Cervicalgia (principal); E11.42 Type 2 diabetes mellitus with diabetic polyneuropathy; N18.31 Chronic kidney disease, stage 3a
CPT/HCPCS: 36415; 72050; 80048; 83036; 85027

== ENCOUNTER → 2023-08-12 11:20 | Outpatient (CLI) | payer MEDICARE, SELFPAY ==
[2023-08-12 12:30] LABS: Hematocrit 35.3 % (41-53); Hemoglobin 11.7 g/dL (13.5-17.5); Mean Corpuscular Volume 87.9 fL (80-100); Platelet Count 211 X10^3/uL (150-400); Red Blood Cell Count 4.02 X10^6/uL (4.5-5.9); White Blood Cell Count 8.1 X10^3/uL (4.5-11.0)
[2023-08-12 12:55] LABS: BUN Creatinine Ratio 20.1 (6-22); Blood Urea Nitrogen 29 mg/dL (9-20); Calcium 9.3 mg/dL (8.4-10.2); Carbon Dioxide 28 mmol/L (22-32); Chloride 107 mmol/L (98-107); Estimated Glomerular Filt Rate 50 mL/min (>60); Glucose 134 mg/dL (80-110); HEMOLYSIS < 15 (0-50); Potassium 4.8 mmol/L (3.4-5.1); Sodium 141 mmol/L (137-145)
== END ==
PROVIDERS: PCP Internal Medicine; Referring Provider Internal Medicine; Visit Provider Internal Medicine
DX: N18.31 Chronic kidney disease, stage 3a (principal)
CPT/HCPCS: 36415; 80048; 85027

== ENCOUNTER 2023-09-16 10:56 | Day surgery (SDC) | payer MEDICARE, SELFPAY ==
[2023-09-16] VITALS (7 sets, daily range): BP systolic 115–170; BP diastolic 56–67; PULSE 56–79; RESP 12–18; TEMP 36.1–36.4; O2SAT 93–99
[2023-09-16] MEDS: LACTATED RINGERS 1,000 ML 42 ML IV (11:30)
--- NOTE | 2023-09-16 11:32 | PM.HP.1 ---
History of Present Illness History of Present Illness Date Patient Seen: 09/16/23 Time Patient Seen: 11:32 Chief complaint: SDC Narrative: Brayan is a 70-year-old man with a history of Buchanan esophagus, a tubular adenoma and Parkinson's. See the office note from April 19 for more details. 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 Polyneuropathy, unspecified Mixed hyperlipidemia Essential hypertension History of diverticulitis History of melanoma History of aspiration pneumonia Seasonal allergic rhinitis GERD (gastroesophageal reflux disease) Snoring (~1999) Obstructive sleep apnea, adult Buchanan's esophagus Parkinson's disease Headache Social History household members: spouse Smoking Status: Never smoker alcohol intake: current Meds Home Medications and Allergies Home Medications Medication Instructions Recorded Confirmed Type alpha lipoic acid 600 mg capsule 600 mg PO DAILY 09/09/22 08/12/23 History ascorbic acid (vitamin C) 1,000 mg 1,000 mg PO DAILY 09/09/22 08/12/23 History tablet carbidopa 25 mg-levodopa 100 mg 2 tab PO TID 09/09/22 09/16/23 History tablet cholecalciferol (vitamin D3) 125 125 mcg PO DAILY 09/09/22 08/12/23 History mcg (5,000 unit) capsule clotrimazole-betamethasone 1 1 applic topical BID PRN Rash 09/09/22 08/12/23 History %-0.05 % topical cream coenzyme Q10 100 mg capsule (Co 100 mg PO DAILY 09/09/22 08/12/23 History Q-10) magnesium glycinate 240 mg PO DAILY 09/09/22 08/12/23 History mecobalamin (vitamin B12) 5,000 5,000 mcg PO DAILY 09/09/22 08/12/23 History mcg disintegrating tablet milk thistle 525 mg PO DAILY 09/09/22 08/12/23 History vitamin k 2 100 mcg PO DAILY 09/09/22 08/12/23 History carvedilol 12.5 mg tablet 12.5 mg PO BID #180 tabs 04/12/23 09/16/23 Rx rosuvastatin 5 mg tablet 5 mg PO .Every 2 days #45 tabs 04/12/23 09/16/23 Rx amlodipine 10 mg tablet 10 mg PO DAILY #90 tabs 04/13/23 09/16/23 Rx Allergies Allergy/AdvReac Type Severity Reaction Status Date / Time lisinopril [LISINOPRIL] Allergy Intermediate SWOLLEN Verified 09/16/23 11:17 TONGUE, HIVES Exam Vital Signs (past 8 hours): - 09/16/23 11:29 Temperature 97.0 F L Pulse Rate 79 Respiratory Rate 18 Blood Pressure 170/67 H Pulse Oximetry 99 Oxygen Delivery Method Room Air Oxygen Delivery Method Room Air Const General: No acute distress Resp Effort & Inspection: normal respiratory effort Assessment & Plan Assessment and plan (1) History of colonic polyps: Status: Acute (2) Buchanan's esophagus: Problem details: EGD with biopsy Qualifiers: Buchanan's esophagus type: without dysplasia Qualified Code(s): K22.70 - Buchanan's esophagus without dysplasia Status: Chronic Plan Proceed with EGD and colonoscopy. Time-Based Coding :: [TOTAL MINUTES] spent with patient and on the chart (including review of chart, obtaining history, exam, reviewing outside data, placing orders, documenting exam and treatment plan, and counseling patient) on [DATE].
--- NOTE | 2023-09-16 12:24 | P.OP.EGD&C_ITS ---
Operative Date/Time/Diagnoses Date of procedure: 09/16/23 Time of procedure: 12:25 Pre-op diagnosis: History of Buchanan esophagus and tubular adenomas Post-op diagnosis: same Procedure & Clinicians Study performed: EGD and colonoscopy Same procedure as scheduled: Yes Surgeon: Suhas Fajardo Procedure Notes Procedure in detail: Surgeon: Suhas Fajardo MD Anesthesia: Christina Solano DO Procedure in detail: A timeout was performed. A bite blocked was placed and monitors were attached to the patient. The patient was positioned in the left lateral decubitus position. Sedation was administered. Once the patient was sedated the endoscope was inserted through the bite block and passed through the esophagus and stomach and into the duodenum. There were no abnormalities in the duodenum. We then withdrew the scope into the stomach. There was some [id number] antritis and hypertrophic tissue at the pylorus. Random biopsies were taken from the antrum with cold forceps. The endoscope was retroflexed and no significant hiatal hernia was noted. There was an old hemostatic clip on the mucosa near the fundus. The endoscope was straightned and withdrawn into the esophagus. There were some short segments of salmon- colored mucosa at the GE and random biopsies were taken with the cold forceps. EGD findings: Antritis and salmon-colored short segments mucosa GE junction Next we repositioned the patient for a colonoscopy. A digital rectal exam was performed and was normal. The colonoscope was inserted and advanced to the cecum. The appendiceal orifice was identified and photographed. The scope was slowly withdrawn over greater than 6 minutes. There was a 5 mm polyp in the cecum removed with a cold snare. The scope was retroflexed in the rectum and no other abnormalities were noted. Colonoscopy findings: 5 mm polyp in the cecum Total procedural EBL: 5 mL Scope withdrawal time: 10 minutes Sedation minutes: 27 minutes Post-procedure Disposition: PACU
--- NOTE | 2023-09-17 | PATH_ITS ---
[facility] Accession Number: [id number] No. of containers..03 Tissue . 01 Material submitted: . PART A: stomach - ANTRUM BIOPSIES PART B: esophagus, E-G Junction - GE JUNCTION PART C: cecum - CECAL POLYP . 01 Diagnosis: A. STOMACH, ANTRUM BIOPSIES: Gastric antral mucosa with features of reactive gastropathy. Negative for Helicobacter organisms by immunohistochemistry. Negative for intestinal metaplasia. Negative for dysplasia or malignancy. . B. GASTROESOPHAGEAL JUNCTION, BIOPSY: Squamocolumnar junctional mucosa with mild active features of reflux esophagitis. Negative for specialized intestinal metaplasia on alcian blue stain. Negative for dysplasia or malignancy. . C. CECAL POLYP: Tubular adenoma. V 09/22/2023 1545 Local . 01 Electronically signed: . Dmitry Hernández MD, PhD, Pathologist NPI- [id number] . 01 Gross description: . A. Received in formalin with two patient identifiers and antrum, are two pedraza soft tissue fragments 0.3 to 0.5 cm in greatest dimension. Submitted in cassette A1. B. Received in formalin with two patient identifiers and GE junction, are three pedraza soft tissue fragments 0.3 to 0.4 cm in greatest dimension. Submitted in cassette B1. C. Received in formalin with two patient identifiers and cecal polyp, is a single pedraza soft tissue fragment 0.9 cm in greatest dimension. Submitted in cassette C1. ([id number]) /TALHA 09/17/2023 1024 Local . 01 Microscopic: . A. An immunohistochemical stain was performed to evaluate for Helicobacter organisms and is negative. The control stain showed appropriate reactivity. . B. An alcian blue stain is negative for goblet cells. The control stain shows appropriate reactivity. . * This test was developed and its performance characteristics determined by [facility]. It has not been cleared or approved by the U.S. Food and Drug Administration. The FDA has determined that such clearance or approval is not necessary. This test is used for clinical purposes. It should not be regarded as investigational or for research. . 01 Pathologist provided ICD-10: K29.60, K21.9, D12.0 . 01 CPT . 529291, 323468, 376899, 745841, [id number] Specimen Comment: A duplicate report has been generated due to demographic updates. Performed at: [address] [facility] [id number] MD Baljit Espinoza MD Phone: [phone]
== END 2023-09-16 13:02 | disposition home or self-care (01) ==
PROVIDERS: PCP Internal Medicine; Referring Provider Surgery; Visit Provider Surgery
PROC: 0DJ08ZZ Inspection of Upper Intestinal Tract, Via Natural or Artificial Opening Endoscopic (ICD-10-PCS; CPT 43235; principal; 2023-09-16 11:00)
PROC: 0DJD8ZZ Inspection of Lower Intestinal Tract, Via Natural or Artificial Opening Endoscopic (ICD-10-PCS; CPT 45378; 2023-09-16 11:00)
DX: Z12.11 Encounter for screening for malignant neoplasm of colon (principal); Z86.010 Personal history of colon polyps; Z87.19 Personal history of other diseases of the digestive system; K29.50 Unspecified chronic gastritis without bleeding; K31.9 Disease of stomach and duodenum, unspecified
CPT/HCPCS: 45385; 43239; 82962; J2704

== ENCOUNTER → 2023-11-09 08:22 | Outpatient (CLI) | payer MEDICARE, SELFPAY ==
[2023-11-09 10:18] LABS: Hemoglobin 12.3 g/dL (13.5-17.5); Mean Corpuscular HGB Conc 33.3 % (30-36); Mean Corpuscular Hemoglobin 28.4 PG (26-34); Platelet Count 205 X10^3/uL (150-400); Red Blood Cell Count 4.35 X10^6/uL (4.5-5.9); Red Cell Distribution Width 14.7 % (11.6-14.8); White Blood Cell Count 8.2 X10^3/uL (4.5-11.0)
[2023-11-09 11:05] LABS: BUN Creatinine Ratio 20.9 (6-22); Blood Urea Nitrogen 34 mg/dL (9-20); Calcium 9.3 mg/dL (8.4-10.2); Carbon Dioxide 25 mmol/L (22-32); Chloride 107 mmol/L (98-107); Estimated Glomerular Filt Rate 43 mL/min (>60); Glucose 121 mg/dL (80-110); HEMOLYSIS < 15 (0-50); Potassium 4.8 mmol/L (3.4-5.1); Sodium 140 mmol/L (137-145)
[2023-11-09 14:01] LABS: Hemoglobin A1C% w Est Avg Glu 6.1 % (4.0-6.0)
== END ==
PROVIDERS: PCP Internal Medicine; Referring Provider Internal Medicine; Visit Provider Internal Medicine
DX: N18.31 Chronic kidney disease, stage 3a (principal); E11.42 Type 2 diabetes mellitus with diabetic polyneuropathy
CPT/HCPCS: 36415; 80048; 83036; 85027

== ENCOUNTER → 2023-12-28 12:43 | Outpatient (CLI) | payer MEDICARE, SELFPAY ==
--- NOTE | 2024-01-06 09:33 | DIET.OUTPTC ---
Dietary Outpatient Consultation Note Consultation Date: 12/28/2023 Assessment: 78 y M referred to dietitian for type 2 diabetes and CKD3 and hx of kidney stones. Catracho presents with today. Report incident of sepsis back June r/t to kidney stones. Wanting educ on nutrition for kidney stones that also takes into consideration CKD3 and T2DM. Has heard about eating low oxalate diet. Was previously doing spinach smoothies and has since stopped. Brings in his multivitamin to assess. Also takes probiotic. Is wondering if he should keep paying for these or if his diet is enough. Questions regarding nutrition for constipation. Diet recall: B-croissant bread 2 sl w/ 1/2 avocado w/ 4 prunes and 1 tsp everything bagel seasoning OR oatmeal w/ cooked apple or berries and 1-2 tbsp walnuts and 1 brazil nut w/ glass of ripple pea protein milk or nut milk or cindy or yogurt OR egg and piece of white bread toasted L-4 oz salmon and salad w/ various vegs D-various home cooked meals consisting of 3-4 oz protein source, carb, and non-starchy veg drinks 16 oz decaf green tea and 16 oz water 3x/d = 64 oz fluids Estimated protein intake 60-75 g/d Doesn't add sodium to meals. Activity-walks Ht: 5 ft 11 in Wt: 208 lb 9 oz BMI: 29.0 UBW: appears he went from UBW of 93-94 kg to 89 kg after hospitalization in June, but has since regained back to his UBW range A1c has been consistently <7% since 2016. Nutrition Diagnosis: Nutrition related knowledge deficit r/t confusion over multiple different diet recommendations aeb intake assessment Interventions: Discussed the following- -Appropriate nutrition for kidney stones including: adequate fluid intake, adequate calcium intake, limit or avoiding very high oxalate foods (provided list), <2000 mg sodium daily, emphasis on including 5+ fruits and vegetables daily and Mediterranean style eating pattern -Appropriate nutrition for CKD3 that aligns with above reccs with additional consideration to total protein intake and including plant based proteins -Calculated and discussed protein needs and protein portion sizes -Consistent CHO at meals for T2DM management -Nutrition for constipation- fiber, movement, hydration -Multivitamin supplement can be taken as recc by primary care provider/other doctor. Diet alone appears sufficient based on recall. Note that nephrology report suggests a B vitamin, recc f/u with them questions regarding that supplementation and recent labs. Probiotic can be taken as desired. 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 EER: 70 g protein (.8g/kg based on adjusted IBW per CKD3 w/ DM) Monitoring/Evaluations: f/u 6-8 wks Electronically Signed by: Evelyn Garza 01/06/24 09:33 Clinical Dietitian [address] [address]
== END ==
PROVIDERS: PCP Internal Medicine; Referring Provider Internal Medicine
DX: E11.22 Type 2 diabetes mellitus with diabetic chronic kidney disease (principal); N18.30 Chronic kidney disease, stage 3 unspecified; Z87.442 Personal history of urinary calculi; Z68.29 Body mass index [BMI] 29.0-29.9, adult; K59.00 Constipation, unspecified; Z71.3 Dietary counseling and surveillance
CPT/HCPCS: 97803

== ENCOUNTER → 2024-01-06 07:39 | Outpatient (CLI) | payer MEDICARE, SELFPAY ==
[2024-01-06 08:12] LABS: Hematocrit 37.8 % (41-53); Hemoglobin 12.6 g/dL (13.5-17.5); Mean Corpuscular HGB Conc 33.3 % (30-36); Mean Corpuscular Hemoglobin 28.9 PG (26-34); Mean Corpuscular Volume 86.9 fL (80-100); Platelet Count 225 X10^3/uL (150-400); Red Blood Cell Count 4.35 X10^6/uL (4.5-5.9); Red Cell Distribution Width 14.1 % (11.6-14.8); White Blood Cell Count 8.4 X10^3/uL (4.5-11.0)
[2024-01-06 08:41] LABS: Hemoglobin A1C% w Est Avg Glu 6.3 % (4.0-6.0)
[2024-01-06 08:44] LABS: BUN Creatinine Ratio 16.6 (6-22); Blood Urea Nitrogen 24 mg/dL (9-20); Calcium 9.6 mg/dL (8.4-10.2); Carbon Dioxide 26 mmol/L (22-32); Chloride 107 mmol/L (98-107); Cholesterol 110 mg/dL (140-199); Estimated Glomerular Filt Rate 49 mL/min (>60); Glucose 147 mg/dL (80-110); HDL Cholesterol 51 mg/dL (40-60); HEMOLYSIS < 15 (0-50); LDL Cholesterol Calculated 44 mg/dL (<100); Potassium 4.4 mmol/L (3.4-5.1); Sodium 141 mmol/L (137-145); Triglycerides 76 mg/dL (35-150)
[2024-01-06 09:51] LABS: Folate 9.4 ng/mL (2.76-20.0); Vitamin B12 > 1000 pg/mL (239-931)
== END ==
PROVIDERS: PCP Internal Medicine; Referring Provider Internal Medicine Cardiovascular Disease; Visit Provider Internal Medicine Cardiovascular Disease
DX: E78.5 Hyperlipidemia, unspecified (principal); E11.42 Type 2 diabetes mellitus with diabetic polyneuropathy; N18.31 Chronic kidney disease, stage 3a; R53.83 Other fatigue
CPT/HCPCS: 36415; 80048; 80061; 82607; 82746; 83036; 85027

== ENCOUNTER → 2024-02-16 12:44 | Outpatient (CLI) | payer MEDICARE, SELFPAY ==
--- NOTE | 2024-02-18 08:43 | DIET.OUTPTC ---
Dietary Outpatient Consultation Note Consultation Date: 02/16/2024 Assessment: 78 y M referred to dietitian for type 2 diabetes and CKD3 and hx of kidney stones. Catracho presents with today (Julieth) for f/u. Reports goals of wanting to increase physical activity and continue to work on Mediterranean diet. Pt and provided pictures of a few of their meals. Pictures included well balanced breakfast, lunch, and dinner (i.e eggs, whole grain toast, avocado for breakfast, lunch with salad and veg with lentils, cheese, and nuts) Diet recall is similar to previous intake. Notes tried intermit. fasting, lost some weight, but gained in back during thanksgiving. Encouraged consistent dinner for 3 meals daily. Reports 2 squares of chocolate from [employer] 1-2x/d. Pt notes having BM daily now, but sometimes it is firmer than desired, causing come discomfort. Takes a benefiber powder in morning (2tsp which is 3 g soluble fiber) Drinks 80 oz fluids daily. 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 pattern by increasing link intake weekly and having 3-4 servings each of fruits and vegetables, additional beans and vegetables likely to increase fiber intake (including insoluble fiber) for softer stools Overall impression- Pt and have well balanced diet. Encouraged consistent dinner to avoid going to bed hungry, reducing dessert to 1x/d over 2x/d, and taking into consideration how much olive oil is put on salads and olive oil that is taken plain via spoon 2x/d to avoid excessive fat intake Electronically Signed by: Evelyn Garza 02/18/24 08:43 Clinical Dietitian [address] [address]
== END ==
PROVIDERS: PCP Internal Medicine; Referring Provider Internal Medicine
DX: E11.22 Type 2 diabetes mellitus with diabetic chronic kidney disease (principal); N18.30 Chronic kidney disease, stage 3 unspecified; Z87.442 Personal history of urinary calculi; Z71.3 Dietary counseling and surveillance
CPT/HCPCS: 97803

== ENCOUNTER → 2024-03-30 09:47 | Outpatient (CLI) | payer MEDICARE, SELFPAY ==
--- NOTE | 2024-03-30 09:51 | DI.RAD.S_ITS ---
PROCEDURE: XR KUB INDICATIONS: Kidney Stones TECHNIQUE: One view of the abdomen acquired. COMPARISON: None. FINDINGS: Stool gas pattern: Moderate colonic stool noted. Stomach small large bowel are normal caliber no evidence of obstruction.. No free intraperitoneal or extraperitoneal air. No gross evidence of ascites Soft tissues: There is a 5 mm calcification overlying the mid left sacrum could represent a mid left ureteral stone. 3 mm calcification in the left true pelvis is likely a phlebolith but could represent a distal left ureteral stone. Organs: No gross evidence for organomegaly. IMPRESSION: Small calcifications overlying the mid and distal left ureter which are likely a innocuous. They could, however, potentially represent ureteral stones. Moderate colonic stool compatible with constipation Dictated by: Yan Aparicio M.D. on 03/31/2024 at 11:14 Approved by: Yan Aparicio M.D. on 03/31/2024 at 11:16
== END ==
PROVIDERS: PCP Internal Medicine; Referring Provider Urology; Visit Provider Urology
DX: N28.89 Other specified disorders of kidney and ureter (principal); Z87.442 Personal history of urinary calculi
CPT/HCPCS: 74018

== ENCOUNTER → 2024-05-19 08:18 | Outpatient (CLI) | payer MEDICARE, SELFPAY ==
[2024-05-19 09:06] LABS: Hemoglobin A1C% w Est Avg Glu 5.8 % (4.0-6.0)
[2024-05-19 10:08] LABS: Aspartate Aminotransferase 25 IU/L (17-59); BUN Creatinine Ratio 17.6 (6-22); Blood Urea Nitrogen 26 mg/dL (9-20); Calcium 9.7 mg/dL (8.4-10.2); Carbon Dioxide 25 mmol/L (22-32); Chloride 110 mmol/L (98-107); Cholesterol 91 mg/dL (140-199); Estimated Glomerular Filt Rate 48 mL/min (>60); Glucose 160 mg/dL (80-110); HDL Cholesterol 38 mg/dL (40-60); HEMOLYSIS < 15 (0-50); LDL Cholesterol Calculated 37 mg/dL (<100); Potassium 4.5 mmol/L (3.4-5.1); Sodium 142 mmol/L (137-145); Triglycerides 78 mg/dL (35-150)
[2024-05-19 10:39] LABS: Prostate Specific Antigen 2.78 ng/mL (0.10-4.00)
[2024-05-19 12:13] LABS: Microalbumin Urine Random 16.6 mg/dL (0-1.6)
== END ==
PROVIDERS: PCP Internal Medicine; Referring Provider Internal Medicine; Visit Provider Internal Medicine
DX: E11.42 Type 2 diabetes mellitus with diabetic polyneuropathy (principal); N18.31 Chronic kidney disease, stage 3a; N40.1 Benign prostatic hyperplasia with lower urinary tract symptoms; N13.8 Other obstructive and reflux uropathy
CPT/HCPCS: 36415; 80048; 80061; 82043; 82570; 83036; 84153; 84450

== ENCOUNTER → 2024-05-31 12:42 | Outpatient (CLI) | payer MEDICARE, SELFPAY ==
--- NOTE | 2024-06-05 16:43 | DIET.OUTPTC ---
Dietary Outpatient Consultation Note Consultation Date: 05/31/2024 Assessment: 78 y M referred to dietitian for type 2 diabetes and CKD3 and hx of kidney stones. Catracho presents with today (Julieth) for f/u. Reports they are going to gym for resistance training and doing walks still. They are working to reduce chocolate intake and reduce sweet snacks from [employer]. Notes having constipation, uses miralax, which helps sometimes but working to find the right amount without becoming overly dependent on it. Recent A1c 5.8%, pt was started on jardiance at last PCP 05/18/24. Diet recall: B-cereal with pea protein milk or whole milk and darion seeds L-salad large with serving of cheese, nuts, and beans or fish x2/wk dressing with olive oil D-yogurt/kefir and berries, hummus and fruit/vegs Drinks 64-80 oz fluids daily. Exercise 3x/wk in one of the following forms for between 30-60 minutes: walk around block (1 mi), exercise video with low impact movements, or gym resistance workout 1-2x/wk Nutrition Interventions: -Discussed physical activity -Reviewed 24 hour litholink results for kidney stones- 1.61L urine output, elevated urinary levels for oxalate and decreased levels citrate -Reviewed: Adequate hydration, limit sodium intake to 2-1.5 g/d, moderate animal protein intake/plant based protein sources, adequate calcium intake 1200 mg/day, educ on very high oxalate foods (spinach, rhubarb), increasing fruit and veg intake (5+ servings/day), citrate acid -Addressed questions r/t diabetes management in regards to artificial sweeteners. Goals- -2 days a week muscle building activities at gym (gym field sales trainer has shown them appropriate activity and gym equipment to use) -Recording miralax dosing and stools to help find best pattern, continue activity, water, and fiber -Continue to reduce dessert portion or sweet snack using portion sizing F/u in 3 months Electronically Signed by: Evelyn Garza 06/05/24 16:43 Clinical Dietitian [address] [address]
== END ==
PROVIDERS: PCP Internal Medicine; Referring Provider Internal Medicine
DX: E11.22 Type 2 diabetes mellitus with diabetic chronic kidney disease (principal); N18.30 Chronic kidney disease, stage 3 unspecified; Z71.3 Dietary counseling and surveillance; Z79.84 Long term (current) use of oral hypoglycemic drugs; Z87.442 Personal history of urinary calculi
CPT/HCPCS: 97803

== ENCOUNTER → 2024-08-29 13:08 | Outpatient (CLI) | payer MEDICARE, SELFPAY ==
[2024-08-29 17:44] LABS: Appearance Urine UA CLEAR; Bilirubin Urine UA NEGATIVE (NEGATIVE); Color Urine UA YELLOW; Glucose Urine UA 3+ g/dL (Negative); Ketones Urine UA NEGATIVE (NEGATIVE); Leukocyte Esterase Urine UA 1+ (NEGATIVE); Nitrite Urine UA NEGATIVE (Negative); Occult Blood Urine UA 3+ (Negative); Protein Urine UA 1+ (Negative); Specific Gravity Urine UA 1.015 (1.000-1.035); Urobilinogen Urine UA 0.2 E.U./dL (0.2)
[2024-08-29 18:21] LABS: Bacteria Urine None Seen; Culture Indicated Urine Specimen Cultured; RBC Urine 10-30/HPF (0-5/HPF); Squamous Epithelial Cell Urine 0-1 /HPF (0-5/HPF); Urine Volume 10mL (spun); WBC Urine >100/HPF (0-5/HPF)
== END ==
LOC: LAB 13:10
PROVIDERS: PCP Internal Medicine; Referring Provider Internal Medicine; Visit Provider Internal Medicine
DX: R31.9 Hematuria, unspecified (principal)
CPT/HCPCS: 81001; 87086

== ENCOUNTER → 2024-11-13 06:46 | Outpatient (CLI) | payer MEDICARE, SELFPAY ==
[2024-11-13 08:29] LABS: Hematocrit 40.3 % (41-53); Hemoglobin 13.5 g/dL (13.5-17.5); Mean Corpuscular HGB Conc 33.4 % (30-36); Mean Corpuscular Hemoglobin 29.1 PG (26-34); Mean Corpuscular Volume 87.1 fL (80-100); Platelet Count 197 X10^3/uL (150-400)
[2024-11-13 09:02] LABS: Hemoglobin A1C% w Est Avg Glu 6.8 % (4.0-6.0)
[2024-11-13 09:07] LABS: Blood Urea Nitrogen 23 mg/dL (9-20); Calcium 9.5 mg/dL (8.4-10.2); Carbon Dioxide 24 mmol/L (22-32); Chloride 106 mmol/L (98-107); Estimated Glomerular Filt Rate 52 mL/min (>60); Glucose 188 mg/dL (70-99); HEMOLYSIS < 15 (0-50); Potassium 4.3 mmol/L (3.4-5.1); Sodium 140 mmol/L (137-145)
[2024-11-13 09:58] LABS: Microalbumi Creatinin Ratio Ur 315.0 ug/mg CR (<30)
== END ==
PROVIDERS: PCP Internal Medicine; Referring Provider Internal Medicine; Visit Provider Internal Medicine
DX: E11.29 Type 2 diabetes mellitus with other diabetic kidney complication (principal); R80.9 Proteinuria, unspecified; N18.31 Chronic kidney disease, stage 3a
CPT/HCPCS: 36415; 80048; 82043; 82570; 83036; 85027

== ENCOUNTER → 2024-12-25 13:45 | Outpatient (CLI) | payer MEDICARE, SELFPAY ==
[2024-12-25 14:37] LABS: COVID-19 CEPHEID 4-PLEX PCR Negative (Negative); Influenza A - CEPHEID Flu A NEGATIVE (NEGATIVE); Influenza B - CEPHEID Flu B NEGATIVE (NEGATIVE)
== END ==
PROVIDERS: PCP Internal Medicine; Visit Provider Internal Medicine
DX: R05.9 Cough, unspecified (principal); R50.9 Fever, unspecified; R52 Pain, unspecified
CPT/HCPCS: 87637

== ENCOUNTER → 2024-12-25 13:55 | Outpatient (CLI) | payer MEDICARE, SELFPAY ==
--- NOTE | 2024-12-25 13:57 | DI.RAD.S_ITS ---
PROCEDURE: XR CHEST 2V INDICATIONS: cough, aspiration TECHNIQUE: 2 views of the chest were acquired. COMPARISON: [facility], , XR CHEST 1V, 06/14/2023, 13:32. [facility], , CHEST 1 VIEW, 12/31/2016, 17:14. FINDINGS: Surgical changes and devices: None. Lungs and pleura: Left midlung opacity. No pleural effusions or pneumothorax. Mediastinum: Mediastinal contours are normal. Heart size is normal. Bones and chest wall: No suspicious bony abnormalities. Soft tissues appear unremarkable. IMPRESSION: Left midlung opacity concerning for pneumonia. Recommend follow-up radiograph in 6-8 weeks after treatment to ensure resolution and exclude underlying neoplasm. Dictated by: Yemi Chacon M.D. on 12/25/2024 at 16:48 Approved by: Yemi Chacon M.D. on 12/25/2024 at 16:48
== END ==
PROVIDERS: PCP Internal Medicine; Referring Provider Internal Medicine; Visit Provider Internal Medicine
DX: J18.9 Pneumonia, unspecified organism (principal)
CPT/HCPCS: 71046; 87637

== ENCOUNTER → 2025-02-13 07:24 | Outpatient (CLI) | payer MEDICARE, SELFPAY ==
[2025-02-13 07:57] LABS: Hemoglobin A1C% w Est Avg Glu 5.6 % (4.0-6.0)
[2025-02-13 08:16] LABS: Blood Urea Nitrogen 39 mg/dL (9-20); Calcium 9.5 mg/dL (8.4-10.2); Carbon Dioxide 23 mmol/L (22-32); Chloride 107 mmol/L (98-107); Estimated Glomerular Filt Rate 48 mL/min (>60); Glucose 110 mg/dL (70-99); HEMOLYSIS < 15 (0-50); Potassium 4.2 mmol/L (3.4-5.1); Sodium 140 mmol/L (137-145)
== END ==
PROVIDERS: PCP Internal Medicine; Referring Provider Internal Medicine; Visit Provider Internal Medicine
DX: E11.29 Type 2 diabetes mellitus with other diabetic kidney complication (principal); R80.9 Proteinuria, unspecified
CPT/HCPCS: 36415; 80048; 83036